=== PATIENT | male | born 1935 | race Caucasian/White ===

== ENCOUNTER 2017-12-08 11:21 | Outpatient (REF) | payer MEDICARE, OTHER, SELFPAY ==
[2017-12-08 12:32] LABS: Anion Gap 7.1 mmol/L (3-11); BUN 24 mg/dL (7-18); CO2 29.9 mmol/L (21.0-32.0); CREATININE 1.05 mg/dL (0.70-1.30); Calcium 8.9 mg/dL (8.5-10.1); Chloride 105 mmol/L (98-107); Glucose 107 mg/dL (70-100); Potassium 4.5 mmol/L (3.5-5.1); Sodium 142 mmol/L (136-145)
== END 2017-12-08 11:41 ==
LOC: NCHCN 11:21
PROVIDERS: PCP Internal Medicine; Visit Provider Internal Medicine
DX: I10 Essential (primary) hypertension (principal)
CPT/HCPCS: 80048

== ENCOUNTER 2018-12-14 01:24 | Outpatient (CLI) | payer MEDICARE, OTHER, SELFPAY ==
--- NOTE | 2018-12-14 13:30 | MERGE_ITS ---
*[facility]* *[facility]* [address] [place] [address] Date of study: 12/14/2018 Transthoracic Echocardiography M-mode, complete 2D, complete spectral Doppler, and color Doppler *STUDY CONCLUSIONS* Summary: 1. Left ventricle: The cavity size was normal. Systolic function was hyperdynamic. The estimated ejection fraction was 65-70%. 2. Aortic valve: There was mild stenosis. Peak velocity (S): 2m/sec. Mean gradient (S): 8.4mm Hg. VTI ratio of LVOT to aortic valve: 0.61. Valve area (VTI): 1.8cm^2. 3. Mitral valve: There was mild regurgitation. 4. Right ventricle: The cavity size was normal. Wall thickness was normal. Systolic function was normal. 5. Atrial septum: No defect or patent foramen ovale was identified. 6. Pulmonary arteries: Pulmonary systolic pressure was in the range of 30mm Hg to 40mm Hg. 7. Inferior vena cava: The vessel was normal in size. The respirophasic diameter changes were in the normal range (greater than or equal to 50%), consistent with normal central venous pressure. *PATIENT PRESENTATION* Height: 172.7cm (68in ) S/D Pressure: 159 / 79 Weight: 78.5kg (172.6lb ) BSA: 1.95m^2 Test start time: 01:30 PM. Test stop time: 02:25 PM. CONSULTING Sky Aviles MD ORDERING Sky Aviles MD REFERRING Sky Aviles MD PERFORMING [facility] NUTRITION ASSISTANT Zamuda, Neelam *PROCEDURE DATA* Procedure information: This study was interpreted by [facility]. Pertinent images and digital data are archived for permanent storage and are available for subsequent review. No prior study was available for comparison. Study status: Routine. Transthoracic echocardiography. M-mode, complete 2D, complete spectral Doppler, and color Doppler. A Transthoracic Echocardiogram was performed. Scanning was performed from the parasternal, apical, subcostal, and suprasternal notch acoustic windows. Images were obtained using an [employer] SC 2000 cardiac ultrasound machine. Study completion: The patient tolerated the procedure well. History: PMH: Murmur. *CARDIAC ANATOMY* Left ventricle: The cavity size was normal. Systolic function was hyperdynamic. The estimated ejection fraction was 65-70%. Aortic valve: Doppler: There was mild stenosis. There was no regurgitation. VTI ratio of LVOT to aortic valve: 0.61. Valve area (VTI): 1.8cm^2. Indexed valve area (VTI): 0.9cm^2/m^2. Peak velocity ratio of LVOT to aortic valve: 0.56. Valve area (Vmax): 1.6cm^2. Indexed valve area (Vmax): 0.8cm^2/m^2. Mean velocity ratio of LVOT to aortic valve: 0.51. Valve area (Vmean): 1.5cm^2. Indexed valve area (Vmean): 0.8cm^2/m^2. Mean gradient (S): 8.4mm Hg. Peak gradient (S): 15.4mm Hg. Aorta: Aortic root: The aortic root was normal in size. Ascending aorta: The ascending aorta was normal in size. Mitral valve: Doppler: There was no evidence for stenosis. There was mild regurgitation. Valve area by pressure half-time: 4.5cm^2. Indexed valve area by pressure half-time: 2.3cm^2/m^2. Peak gradient (D): 3.5mm Hg. Left atrium: The atrium was normal in size. Atrial septum: No defect or patent foramen ovale was identified. Right ventricle: The cavity size was normal. Wall thickness was normal. Systolic function was normal. Pulmonic valve: Doppler: There was no evidence for stenosis. There was trivial regurgitation. Tricuspid valve: Doppler: There was mild regurgitation. Pulmonary artery: Poorly visualized. Pulmonary systolic pressure was in the range of 30mm Hg to 40mm Hg. Right atrium: The atrium was normal in size. Pericardium: There was no pericardial effusion. Systemic veins: Inferior vena cava: The vessel was normal in size. The respirophasic diameter changes were in the normal range (greater than or equal to 50%), consistent with normal central venous pressure. Measurements Left ventricle Value Reference LV ID, ED, PLAX 4.3 cm 3.5 - 6.0 LV ID, ES, PLAX 2.9 cm 2.1 - 4.0 LV PW thickness, ED, PLAX 0.9 cm LV end-diastolic volume, 1-p A2C 104 ml LV ejection fraction, 1-p A2C 51 % LV end-diastolic volume, 1-p A4C 92 ml LV ejection fraction, 1-p A4C 51 % LV e', lateral 0.098 m/sec LV E/e', lateral 9 LV e', medial 0.057 m/sec LV E/e', medial 16 LV e', average 0.077 m/sec LV E/e', average 12 Ventricular septum Value Reference IVS thickness, ED, PLAX 0.9 cm LVOT Value Reference LVOT ID, A-P 1.9 cm LVOT area 2.9 cm^2 LVOT peak velocity, S 1.1 m/sec LVOT mean velocity, S 0.67 m/sec LVOT VTI, S 22.0 cm LVOT peak gradient, S 4.8 mm Hg LVOT mean gradient, S 2.2 mm Hg Stroke volume (SV), LVOT DP 64 ml Stroke index (SV/bsa), LVOT DP 33 ml/m^2 Aortic valve Value Reference Aortic valve peak velocity, S 2 m/sec Aortic valve mean velocity, S 1.3 m/sec Aortic valve VTI, S 36.0 cm Aortic mean gradient, S 8.4 mm Hg Aortic peak gradient, S 15.4 mm Hg VTI ratio, LVOT/AV 0.61 Aortic valve area, VTI 1.8 cm^2 Velocity ratio, peak, LVOT/AV 0.56 Aortic valve area, peak velocity 1.6 cm^2 Velocity ratio, mean, LVOT/AV 0.51 Aortic valve area, mean velocity 1.5 cm^2 Aortic valve area/bsa, mean velocity 0.8 cm^2/m^2 Aorta Value Reference Aortic root ID, ED 2.5 cm Ascending aorta ID, A-P, S 3.3 cm Left atrium Value Reference LA ID, A-P, ES 2.7 cm LA ID/bsa, A-P 1.4 cm/m^2 <=2.2 LA volume, ES, 2-p 47 ml LA volume/bsa, ES, 2-p 24 ml/m^2 LA/aortic root ratio 1.05 Mitral valve Value Reference Mitral E-wave peak velocity 0.93 m/sec Mitral A-wave peak velocity 0.83 m/sec Mitral deceleration time 167 ms 150 - 230 Mitral pressure half-time 48 ms Mitral peak gradient, D 3.5 mm Hg Mitral E/A ratio, peak 1.13 Mitral valve area, PHT, DP 4.5 cm^2 Tricuspid valve Value Reference Tricuspid regurg peak velocity 2.8 m/sec Tricuspid peak RV-RA gradient 32.2 mm Hg Right atrium Value Reference RA area, ES, A4C 17.2 cm^2 8.3 - 19.5 Legend: (L) and (H) asha values outside specified reference range. I have personally reviewed the images and have reviewed and edited the reported findings. Electronically signed by Jonathan Cao MD 12/14/2018 17:56
== END 2018-12-14 01:44 ==
PROVIDERS: PCP Internal Medicine; Visit Provider Internal Medicine
DX: R01.1 Cardiac murmur, unspecified (principal); I35.0 Nonrheumatic aortic (valve) stenosis; I34.0 Nonrheumatic mitral (valve) insufficiency; I10 Essential (primary) hypertension
CPT/HCPCS: 93306

== ENCOUNTER 2020-02-18 23:06 | Outpatient (REF) | payer MEDICARE, OTHER, SELFPAY ==
[2020-02-18 21:22] LABS: Anion Gap 6.7 mmol/L (3-11); BUN 24 mg/dL (7-18); CO2 28.3 mmol/L (21.0-32.0); CREATININE 1.07 mg/dL (0.70-1.30); Calcium 9.3 mg/dL (8.5-10.1); Chloride 106 mmol/L (98-107); Glucose 109 mg/dL (74-106); Potassium 4.2 mmol/L (3.5-5.1); Sodium 141 mmol/L (136-145)
== END 2020-02-18 23:26 ==
LOC: NCHCN 23:06
PROVIDERS: PCP Internal Medicine; Visit Provider Internal Medicine
DX: I10 Essential (primary) hypertension (principal)
CPT/HCPCS: 80048

== ENCOUNTER 2020-02-29 08:58 | Day surgery (SDC) | payer MEDICARE, OTHER, SELFPAY ==
[2020-02-29 09:12] VITALS: BP 164/82; PULSE 97; RESP 18; TEMP 36.4; O2SAT 98
[2020-02-29] MEDS: Tropicam./Phenyleph. (1/2.5%) 5 ML BTL OS ×3 (09:25→09:32)
[2020-02-29] MEDS: Balanced Salt Soln.-PLUS 500 ML BAG (11:27)
[2020-02-29] MEDS: Tetracaine 0.5% 4 ML BTL OS (11:29)
[2020-02-29] MEDS: Lidocaine 1% Pres-Free 5 ML VIAL (11:31)
[2020-02-29] MEDS: Lidocaine 2% Jelly 6 ML SYR (11:35)
[2020-02-29] MEDS: Povidone-Iodine Ophth 30 ML BTL (11:35)
--- NOTE | 2020-02-29 11:39 | ROE_ITS ---
Date of service: 02/29/20 Time of Service: 11:39 Operative Note Operative Note DATE OF PROCEDURE: 02/29/20 PRE-OP DIAGNOSIS: Nuclear cataract, left eye POST-OP DIAGNOSIS: same PROCEDURE: Cataract extraction using phacoemulsification with intraocular lens implant, left eye SURGEON: Victor Hugo Núñez ANESTHESIA: MAC and local (sub-tenon's anesthetic infiltration) PATHOLOGY: none sent COMPLICATIONS: None Patient was transported to: same day Patient's condition: stable Implants: Lei and Lei Vision / [employer] Tecnis [id number] Indications: Progressive decreased vision due to cataract, left eye Procedure Description: CATARACT SURGERY OPERATIVE REPORT PREOPERATIVE DIAGNOSIS: Nuclear cataract, left eye POSTOPERATIVE DIAGNOSIS: Same OPERATION: Cataract extraction using phacoemulsification with posterior chamber intraocular lens implant, left eye. IOL: IOL Medical Observer/Model: J&J Vision / MICHELLE Tecnis ZCB00 IOL Power: + 24.0 diopters IOL Serial Number: [id number] Optic Diameter: 6.0mm Haptic/Overall Diameter: 13.0mm PHACO INFO: Venu [employer] Vision System with OZil and Active Fluidics Cumulative Dispersed Energy (CDE): 16.36 seconds SURGEON: Victor Hugo Núñez MD, SHALA ANESTHESIA: Monitored Anesthesia Care (MAC), with local sub-tenon's anesthetic infiltration COMPLICATIONS: None SPECIMENS: None INDICATIONS FOR PROCEDURE: Patient is an 84-year-old gentleman with history of diminished visual acuity in both eyes secondary to the development of bilateral nuclear cataracts. His significant symptomatically he desires cataract surgery done to improve and maximize his vision. PROCEDURE: The correct surgical eye was identified and marked as the left eye and the pupil was dilated in the preoperative area using mydriatics and cycloplegics. The dilated pupil size was 5.5 mm. Oral sedation was administered in the form of an Imprimis MKO Melt (midazolam 3mg/ketamine 25mg/ondansetron 2mg). The patient was brought to the operating room where cardiopulmonary monitoring was instituted and surgical time-out was performed, confirming the correct operative eye and IOL power. Topical anesthesia was administered and ophthalmic povidone-iodine 5% was instilled into the conjunctival fornices. Lidocaine gel was applied to the cornea and the chris-ocular area was prepped with Betadine 10% solution and draped in the usual sterile fashion for intraocular surgery, including an aperture drape. A Tegaderm transparent film dressing was cut in half and used to cover the lashes and lid margins. Care was taken to sequester the lashes and lid margins under the Tegaderm dressing. A lid speculum was placed between the lids of the operative eye and the Meredith-Ashli operating microscope was maneuvered into position. Kavitha scissors were then used to make a conjunctival buttonhole approximately 6mm posterior to the limbus in the inferonasal quadrant. Blunt dissection was carried out to expose bare sclera, and a blunt-tipped sub-tenon?s anesthesia cannula was introduced and passed posteriorly along the globe where non- preserved plain lidocaine was injected into posterior sub-Tenon?s space. A sideport knife was used to make a paracentesis port superior/superiortemporally. Intraocular phenylephrine/lidocaine was injected into the anterior chamber. The anterior chamber was then filled with viscoelastic. A 2.4mm keratome knife was used to create a half-thickness groove at the limbus and then to construct a three-plane near-clear corneal tunnel extending 2.0mm into clear cornea in the temporal position. . A flap was raised on the anterior capsule and capsulorhexis forceps were used to complete a continuous curvilinear capsulorhexis of 5.5 mm. Balanced salt solution was then used to perform cortical cleaving hydrodissection and nuclear hydrodelineation until the lens could be freely rotated within the capsular bag. The lens nucleus was then disassembled and removed within the capsular bag and iris plane using phacoemulsification. Residual cortical material was removed using the 45-degree angled silicone I/A tip with 0.3mm port. The posterior capsule was carefully polished to remove as much residual lens epithelial cells as safely possible. The capsular bag was then inflated and the anterior chamber deepened with viscoelastic. The lens implant described above was inserted into the capsular bag using the MICHELLE [place] Injector. A Kuglen hook was used to dial the IOL into position. Residual viscoelastic was then removed first from posterior to the IOL, then from the anterior chamber using the I/A handpiece. The lens implant was noted to center nicely within the capsular bag. The incisions were stromally hydrated, and the anterior chamber was reformed using BSS. Then 0.1cc of moxifloxacin 5.0mg/ml were injected into the capsular bag and anterior chamber. The incisions were checked with a Weck spear and found to be secure. Several drops of ophthalmic povidone-iodine 5% were then applied to the eye followed by two drops of Imprimis combination prednisolone/moxifloxacin/nepafenac solution. The drapes were removed and a clear plastic protective eye shield was placed over the eye. The patient was then returned to Same Day Surgery in stable condition.
--- NOTE | 2020-02-29 11:39 | W.PM.DSUDISC ---
Discharge Plan Disposition Patient Disposition: HOME Condition: Good Discharge Details Attending Provider: Victor Hugo Núñez Primary Care Provider: Sky Aviles Home Meds and New Rx's Prescriptions: No Action amlodipine 5 mg tablet 5 mg PO DAILY RF: 0 Discharge Instructions Stand Alone Forms: Post-op Topical Cataract, Gissell Montes (DSU) Discharge Orders Discharge Orders: Discharge Order (Routine); Ordered 02/29/20 Ordered By: Victor Hugo Núñez DS: Diagnosis Discharge Diagnosis (1) Nuclear sclerotic cataract of left eye: Status: Resolved
[2020-02-29 12:10] VITALS: BP 131/76; PULSE 81; RESP 20; TEMP 36.8; O2SAT 100
== END 2020-02-29 12:15 | disposition home or self-care (01) ==
PROVIDERS: PCP Internal Medicine; Visit Provider Ophthalmology
PROC: (CPT 66984; principal; 2020-02-29 10:30)
DX: H25.12 Age-related nuclear cataract, left eye (principal); I10 Essential (primary) hypertension
CPT/HCPCS: 66984; V2632

== ENCOUNTER 2020-03-17 06:31 | Day surgery (SDC) | payer MEDICARE, OTHER, SELFPAY ==
[2020-03-17 06:37] VITALS: BP 176/83; PULSE 94; RESP 22; TEMP 36.2; O2SAT 95
[2020-03-17] MEDS: Tropicam./Phenyleph. (1/2.5%) 5 ML BTL OD ×3 (06:53→07:03)
[2020-03-17] MEDS: Lidocaine 2% Jelly 6 ML SYR (07:21)
[2020-03-17] MEDS: Povidone-Iodine Ophth 30 ML BTL ×2 (07:23→07:53)
[2020-03-17] MEDS: Balanced Salt Soln.-PLUS 500 ML BAG (07:28)
[2020-03-17] MEDS: Tetracaine 0.5% 4 ML BTL OD (07:29)
[2020-03-17] MEDS: Lidocaine 1% Pres-Free 5 ML VIAL (07:29)
[2020-03-17] MEDS: Duovisc Viscoelastic System EACH 1 EACH (07:30)
--- NOTE | 2020-03-17 07:58 | W.PM.DSUDISC ---
Discharge Plan Disposition Patient Disposition: HOME Condition: Good Discharge Details Attending Provider: Victor Hugo Núñez Primary Care Provider: Sky Aviles Home Meds and New Rx's Prescriptions: No Action amlodipine 5 mg tablet 5 mg PO DAILY RF: 0 Discharge Instructions Stand Alone Forms: Post-op Topical Cataract, Gissell Montes (DSU) Discharge Orders Discharge Orders: Discharge Order (Routine); Ordered 03/17/20 Ordered By: Victor Hugo Núñez DS: Diagnosis Discharge Diagnosis (1) Nuclear sclerotic cataract of right eye: Status: Resolved
--- NOTE | 2020-03-17 07:59 | ROE_ITS ---
Date of service: 03/17/20 Time of Service: 07:59 Operative Note Operative Note DATE OF PROCEDURE: 03/17/20 PRE-OP DIAGNOSIS: Nuclear cataract, right eye POST-OP DIAGNOSIS: same PROCEDURE: Cataract extraction using phacoemulsification with intraocular lens implant, right eye SURGEON: Victor Hugo Núñez ANESTHESIA: MAC and local (sub-tenon's anesthetic infiltration) ESTIMATED BLOOD LOSS: 0 PATHOLOGY: none sent COMPLICATIONS: None Patient was transported to: same day Patient's condition: stable Implants: Lei and Lei Vision / [employer] Opt[employer] Tecnis ZCB00 intr aocular lens Indications: Progressive decreased vision due to cataract, right eye Procedure Description: CATARACT SURGERY OPERATIVE REPORT PREOPERATIVE DIAGNOSIS: Nuclear cataract, right eye POSTOPERATIVE DIAGNOSIS: Same OPERATION: Cataract extraction using phacoemulsification with posterior chamber intraocular lens implant, right eye. IOL: IOL Sack Repairer/Model: J&J Vision / MICHELLE Tecnis ZCB00 IOL Power: + +24.0 diopters IOL Serial Number: [id number] Optic Diameter: 6.0mm Haptic/Overall Diameter: 13.0mm PHACO INFO: Venu [employer]ion Vision System with OZil and Active Fluidics Cumulative Dispersed Energy (CDE): 17.60 seconds SURGEON: Victor Hugo Núñez MD, SHALA ANESTHESIA: Monitored Anesthesia Care (MAC), with local sub-tenon's anesthetic infiltration COMPLICATIONS: None SPECIMENS: None INDICATIONS FOR PROCEDURE: Patient is an 84-year-old gentleman with history of diminished visual acuity in his right eye. He has history of bilateral nuclear cataracts, and has already undergone cataract surgery in his left eye. He is doing well postoperatively. He now presents for cataract surgery in the right eye. PROCEDURE: The correct surgical eye was identified and marked as the right eye and the pupil was dilated in the preoperative area using mydriatics and cycloplegics. The dilated pupil size was 5.5 mm. Oral sedation was administered in the form of an Imprimis MKO Melt (midazolam 3mg/ketamine 25mg/ondansetron 2mg). The patient was brought to the operating room where cardiopulmonary monitoring was instituted and surgical time-out was performed, confirming the correct operative eye and IOL power. Topical anesthesia was administered and ophthalmic povidone-iodine 5% was instilled into the conjunctival fornices. Lidocaine gel was applied to the cornea and the chris-ocular area was prepped with Betadine 10% solution and draped in the usual sterile fashion for intraocular surgery, including an aperture drape. A Tegaderm transparent film dressing was cut in half and used to cover the lashes and lid margins. Care was taken to sequester the lashes and lid margins under the Tegaderm dressing. A lid speculum was placed between the lids of the operative eye and the Meredith-Ashli operating microscope was maneuvered into position. Kavitha scissors were then used to make a conjunctival buttonhole approximately 6mm posterior to the limbus in the inferonasal quadrant. Blunt dissection was carried out to expose bare sclera, and a blunt-tipped sub-tenon?s anesthesia cannula was introduced and passed posteriorly along the globe where non- preserved plain lidocaine was injected into posterior sub-Tenon?s space. A sideport knife was used to make a paracentesis port inferiortemporally. Intraocular phenylephrine/lidocaine was injected into the anterior chamber. The anterior chamber was then filled with Venu Viscoat viscoelastic. A 2.4mm keratome knife was used to create a half-thickness groove at the limbus and then to construct a three-plane near-clear corneal tunnel extending 2.0mm into clear cornea in the superiortemporal position. . A flap was raised on the anterior capsule and capsulorhexis forceps were used to complete a continuous curvilinear capsulorhexis of 4.5 mm. The anterior chamber was noted to be quite shallow. Balanced salt solution was then used to perform cortical cleaving hydrodissection and nuclear hydrodelineation until the lens could be freely rotated within the capsular bag. The lens nucleus was then disassembled and removed within the capsular bag and iris plane using phacoemulsification. Residual cortical material was removed using the I/A handpiece. The posterior capsule was carefully polished to remove as much residual lens epithelial cells as safely possible. The capsular bag was then inflated and the anterior chamber deepened with viscoelastic. The lens implant described above was inserted into the capsular bag using the MICHELLE [place] Injector. A Kuglen hook was used to dial the IOL into position. Residual viscoelastic was then removed first from posterior to the IOL, then from the anterior chamber using the I/A handpiece. The lens implant was noted to center nicely within the capsular bag. The incisions were stromally hydrated, and the anterior chamber was reformed using BSS. Then 0.5cc of moxifloxacin 1.0mg/ml were injected into the capsular bag and anterior chamber. The incisions were checked with a Weck spear and found to be secure. Several drops o f ophthalmic povidone-iodine 5% were then applied to the eye followed by two drops of Imprimis combination prednisolone/moxifloxacin/nepafenac solution. The drapes were removed and a clear plastic protective eye shield was placed over the eye. The patient was then returned to Same Day Surgery in stable condition.
[2020-03-17 08:28] VITALS: BP 136/70; PULSE 77; RESP 18; TEMP 36.9; O2SAT 94
== END 2020-03-17 08:50 | disposition home or self-care (01) ==
PROVIDERS: PCP Internal Medicine; Visit Provider Ophthalmology
PROC: (CPT 66984; principal; 2020-03-17 07:30)
DX: H25.11 Age-related nuclear cataract, right eye (principal); Z96.1 Presence of intraocular lens; Z98.42 Cataract extraction status, left eye; I10 Essential (primary) hypertension
CPT/HCPCS: 66984; V2632

== ENCOUNTER 2020-04-08 12:06 | Outpatient (REF) | payer MEDICARE, OTHER, SELFPAY ==
[2020-04-08 13:42] LABS: HCT 39.5 % (40.0-50.0); HGB 12.7 g/dL (13.5-17.5); MCH 31.1 pg (27.0-33.0); MCHC 32.2 % (32.0-36.0); MCV 96.8 fL (80-95); MPV 8.9 fL (8.0-11.0); Platelet Count 251 10^3/uL (130-400); RBC 4.08 10^6/uL (4.36-5.78); RDW 12.2 % (11.8-14.1); RDW-SD 43.2 fL; WBC 6.95 10^3/uL (4.4-10.8)
[2020-04-08 13:59] LABS: ALT 23 U/L (16-63); AST 17 U/L (15-37); Albumin 3.9 g/dL (3.4-5.0); Alkaline Phosphatase 123 U/L (46-116); Anion Gap 8.8 mmol/L (3-11); BUN 38 mg/dL (7-18); CO2 26.2 mmol/L (21.0-32.0); CREATININE 2.85 mg/dL (0.70-1.30); Calcium 8.7 mg/dL (8.5-10.1); Chloride 107 mmol/L (98-107); Estimated GFR 21.26 (mL/min/1.73m2); Glucose 95 mg/dL (74-106); NT-proBNP 405 pg/mL (<300); Potassium 4.7 mmol/L (3.5-5.1); Sodium 142 mmol/L (136-145); Total Protein 6.8 g/dL (6.4-8.2)
[2020-04-08 14:01] LABS: Hemoglobin A1C 5.3 % (<5.7)
[2020-04-08 23:14] LABS: PSA, Screening 167.5 ng/mL (0.0-6.5)
== END 2020-04-08 12:26 ==
LOC: NCHCN 12:06
PROVIDERS: PCP Internal Medicine; Visit Provider Internal Medicine
DX: I10 Essential (primary) hypertension (principal); R11.0 Nausea; R06.09 Other forms of dyspnea; R53.83 Other fatigue; R32 Unspecified urinary incontinence; R35.1 Nocturia; Z87.09 Personal history of other diseases of the respiratory system; R60.9 Edema, unspecified
CPT/HCPCS: 80053; 84153; 85027; 83036; 83880; 84443

== ENCOUNTER → 2020-04-11 08:15 | Outpatient (BNVA) | payer MEDICARE, OTHER, SELFPAY | PROVIDERS: PCP Internal Medicine; Referring Provider Internal Medicine; Visit Provider Urology | DX: R97.20 Elevated prostate specific antigen [PSA] (principal); N39.490 Overflow incontinence; N13.9 Obstructive and reflux uropathy, unspecified; N13.8 Other obstructive and reflux uropathy | CPT/HCPCS: 51702; 99215; G2212 ==

== ENCOUNTER 2020-04-14 01:36 | Outpatient (CLI) | payer MEDICARE, OTHER, SELFPAY ==
--- NOTE | 2020-04-14 | DI.US_ITS ---
EXAM: US PROSTATE BIOPSY CLINICAL HISTORY: ELEVATED PSA,R97.20 TECHNIQUE: Transrectal ultrasound for prostate biopsy. COMPARISON: None FINDINGS: Ultrasound guidance was performed during transrectal prostate biopsy performed by the urologist. IMPRESSION: DATA REPOSITORY:
--- NOTE | 2020-04-14 08:40 | PROST_PTH ---
PATIENT: Mike Leonard LOC: [facility] U#:[id number] AGE/SX: 84/M ROOM: RE04/14/[address]: Jason Stroud MD : [id number] BED: DIS: 04/14/2020 SPEC #: [id number] RECD: 04/14/20 12:03 STATUS: [facility] #: [id number] KIANA: 04/14/20 08:[address]: Jason Stroud DEPT: Surgical Specimen RECD BY: Xochitl Cordon ENTERED: 04/14/20 12:05 SP TYPE: PROST OTHR DR: Sky Aviles Tissues: 1 - PROSTATE NEEDLE BIOPSY 2 - PROSTATE NEEDLE BIOPSY 3 - PROSTATE NEEDLE BIOPSY 4 - PROSTATE NEEDLE BIOPSY 5 - PROSTATE NEEDLE BIOPSY 6 - PROSTATE NEEDLE BIOPSY 7 - PROSTATE NEEDLE BIOPSY 8 - PROSTATE NEEDLE BIOPSY 9 - PROSTATE NEEDLE BIOPSY 10 - PROSTATE NEEDLE BIOPSY 11 - PROSTATE NEEDLE BIOPSY 12 - PROSTATE NEEDLE BIOPSY Procedures: GROSS AND MICRO LEVEL 4 IMMUNOPEROXIDASE STAIN Comments: [id number]
--- NOTE | 2020-04-14 08:58 | W.PM.OP ---
Date of service: 04/14/20 Time of Service: 08:58 Operative Note Operative Note DATE OF PROCEDURE: 04/14/20 PRE-OP DIAGNOSIS: Elevated PSA POST-OP DIAGNOSIS: same PROCEDURE: Transrectal ultrasound-guided biopsy of prostate SURGEON: Jason Stroud ANESTHESIA: local ESTIMATED BLOOD LOSS: 5 PATHOLOGY: other (Laterally directed biopsies of the prostate) COMPLICATIONS: None Patient was transported to: no change Patient's condition: stable Indications: This is an 84-year-old gentleman who was recently identified as having obstructive uropathy. He has elevated PSA over 150 ng/mL. On digital rectal exam, there is diffuse nodularity of the rectal wall and prostate. He presents for ultrasound-guided biopsy. Findings: Diffusely thickened rectal wall Tong catheter in place Diffusely enlarged prostate Procedure Description: The patient was brought to the procedure room on 04/14/2020. He had been given a preprocedure mechanical and antibiotic bowel prep. Transrectal imaging of the prostate was performed using a variable megahertz transducer. The prostate was imaged in transverse and longitudinal planes. The prostate volume was measured at 79 cc. A Tong catheter could be seen in the urethra. The rectal wall appeared quite thickened and irregular. There was loss of architecture between the rectal wall and prostate itself. A periprosthetic nerve block was performed using 1% lidocaine A total of 12 laterally directed biopsies were taken and sent to pathology for permanent section. He tolerated the procedure well.
[2020-04-14 09:42] LABS: BUN 33 mg/dL (7-18); CREATININE 1.51 mg/dL (0.70-1.30); Estimated GFR 44.25 (mL/min/1.73m2)
== END 2020-04-14 01:56 ==
PROVIDERS: PCP Internal Medicine; Visit Provider Urology
DX: R97.20 Elevated prostate specific antigen [PSA] (principal); N13.9 Obstructive and reflux uropathy, unspecified; C61 Malignant neoplasm of prostate
CPT/HCPCS: 55700; 76872; 76942; 84520; 88305; 82565; 88361

== ENCOUNTER 2020-04-15 13:24 | Outpatient (CLI) | payer MEDICARE, OTHER, SELFPAY ==
[2020-04-15] MEDS: Omnipaque 350 MG/ML 50 ML BTL IJ (09:51)
[2020-04-15] MEDS: Breeza Beverage 473 ML BTL PO ×2 (09:52)
--- NOTE | 2020-04-15 11:04 | DI.CT_ITS ---
EXAM: CT CHEST/ABD/PEL WO CLINICAL HISTORY: ACUTE NONTRAUMATIC KIDNEY INJURY,N17.9,ELEVATED PSA,? PROSTATE CA. TECHNIQUE: Imaging Protocol: Axial computed tomography images with coronal and sagittal reformatted images were created and reviewed CONTRAST MATERIAL: Intravenous: Omnipaque 350 Contrast volume: Noncontrast Oral: yes COMPARISON: US US PROSTATE BIOPSY from 04/14/2020 FINDINGS: CHEST: Thyroid: Normal Tracheobronchial tree: Patent where visualized. Mediastinum and Gregoria: No dominant adenopathy or fluid collection. Pulmonary parenchyma: No consolidation or dominant measurable mass. Moderate centrilobular emphysema greater in the upper lobes. Mild apical scarring. 3 small nodules are noted at the left lung base, measuring 8 millimeters, 5 millimeters and 4 millimeters respectively. Pleura: No effusion or pneumothorax. Lymph nodes: Within normal limits. Aorta: Thoracic portion non-dilated. Mild atherosclerotic changes. Heart: Normal size. Moderate coronary artery calcifications. Bones: Sclerotic metastatic foci in the T12 vertebral body, spinous process of T8 as well as a few bi lateral ribs and inferior left scapula. ABDOMEN: Liver: Normal density. No measurable mass. Gallbladder and biliary tract: No radiodense calculus or dilation. Pancreas: Normal density, no abnormal calcifications or inflammatory process. Spleen: Normal. Kidneys: Normal size, contour and axis. Nonobstructing stone near the upper pole of the left kidney. Cysts mid and lower pole of the right kidney. Bilateral hydronephrosis. No ureteral calculi. Adrenal glands: No masses seen. Aorta: Abdominal portion non-dilated. Moderate atherosclerotic changes. Lymph nodes: Enlarged para-aortic lymph nodes, greater on the left measuring on the order of 15 soco meters. Small bilateral iliac chain lymph nodes on the order of 1 cm. PELVIS: Bladder: Catheter in place. Marked wall thickening. Bowel: No obstruction or bowel wall thickening. Peritoneal cavity: No ascites, collection or mesenteric inflammatory response. Bones: Numerous sclerotic foci are seen in the bilateral luis, ischia and pubic bones as well as sacr um and bilateral proximal femurs. A large sclerotic lesion is seen in L3. There are no destructive lesions or evidence of pathologic fracture. Reproductive organs: Markedly enlarged prostate. The borders are not well-defined and appears to ext end posteriorly to the seminal vesicles. Numerous small but abnormally enlarged perirectal lymph nod es. IMPRESSION: Markedly enlarged prostate with infiltrative appearance consistent with prostate carcinoma. Bilatera l moderate hydronephrosis. Enlarged pelvic and periaortic lymph nodes. Widespread bony metastases. Nodules at the left lung base are suspicious for metastatic disease. RADIATION DOSE DELIVERED: 1,302.82mGy.cm Total DLP DATA REPOSITORY: All CT scans at this facility are submitted to the National Radiology Data Registry (NRDR) Dose Index Registry (DIR) with the [employer] (ACR). RADIATION OPTIMIZATION: All CT scans at this facility use at least one of these dose optimization te chniques: automated exposure control; mA and/or kV adjustment per patient size (includes targeted exa ms where dose is matched to clinical indication); or iterative reconstruction.
== END 2020-04-15 13:44 ==
PROVIDERS: PCP Internal Medicine; Visit Provider Internal Medicine
DX: N40.0 Benign prostatic hyperplasia without lower urinary tract symptoms (principal); N13.30 Unspecified hydronephrosis; R59.0 Localized enlarged lymph nodes; R91.8 Other nonspecific abnormal finding of lung field; C79.51 Secondary malignant neoplasm of bone; R97.20 Elevated prostate specific antigen [PSA]
CPT/HCPCS: 71250; 99204; 74176; Q9967

== ENCOUNTER → 2020-04-25 10:59 | Outpatient (BNVA) | payer MEDICARE, OTHER, SELFPAY | PROVIDERS: PCP Internal Medicine; Referring Provider Internal Medicine; Visit Provider Urology | DX: C61 Malignant neoplasm of prostate (principal); N13.9 Obstructive and reflux uropathy, unspecified | CPT/HCPCS: 99215; G2212 ==

== ENCOUNTER 2020-05-01 01:12 | Outpatient (CLI) | payer MEDICARE, OTHER, SELFPAY ==
--- NOTE | 2020-05-01 | DI.US_ITS ---
EXAM: US CAROTID CLINICAL HISTORY: H/O ISCHEMIC TIA, Z86.73, PROSTATE CA. TECHNIQUE: Ultrasound carotids performed using grayscale, color-flow, and spectral Doppler imaging. COMPARISON: No exams were available for comparison FINDINGS: RIGHT CAROTID ARTERY: Plaque: Mild plaque proximal internal carotid artery Velocity elevation: None. LEFT CAROTID ARTERY: Plaque: Mild plaque proximal internal carotid artery. Velocity elevation: None. VERTEBRAL ARTERIES: Antegrade flow. Measurements: R Bulb: 60.4cm/s PS / 7.7cm/s ED R CCA: 122.1cm/s PS / 18.6cm/s ED R ECA: 114.4cm/s PS / 12.9cm/s ED R ICA Prox: 152.7cm/s PS /38.2cm/s ED R ICA Mid: 121.2cm/s PS / 23.1cm/s ED R ICA Distal: 104.9cm/s PS /24cm/s ED R Vert: 62.8cm/s PS / 12.4cm/s ED R SVR: 1.25 R DVR: 2.05 L Bulb: 74.5cm/s PS /10.8cm/s ED L CCA: 113.2cm/s PS / 18.2cm/s ED L ECA: 141.6cm/s PS /17.6cm/s ED L ICA Prox:97cm/s PS / 15.4cm/s ED L ICA Mid: 108.6cm/sPS / 26.4cm/s ED L ICA Distal: 108.6cm/s PS / 30.8cm/s ED L Vert: 64.9cm/s PS / 15.4cm/s ED L SVR: 0.96 L DVR: 1.45 IMPRESSION: Mild calcific plaque in the common carotid bulb and proximal internal carotid arteries. Mild velocit y elevations in the proximal right internal carotid artery consistent with a 50-69 percent stenosis. Criteria for Carotid Stenosis: Normal: ICA PSV <125 cm/s no plaque or intimal thickening is visible. <50% stenosis: ICA PSV <125 cm/s and plaque or intimal thickening is visible. 50-69% stenosis: ICA PSV is 125-250 cm/s and plaque is visible. >70% stenosis to near occlusion: ICA PSV >250 cm/s with visible plaque and luminal narrowing. DATA REPOSITORY:
--- NOTE | 2020-05-01 09:35 | DI.CT_ITS ---
EXAM: CT HEAD WO CLINICAL HISTORY: H/O ISCHEMIC TIA,Z86.73, PROSTATE CA. TECHNIQUE: Imaging Protocol: Axial computed tomography images with coronal and sagittal reformatted images were created and reviewed COMPARISON: No exams were available for comparison FINDINGS: Ventricles and Extra axial spaces: Normal in size and morphology for the patient's age. Minimal atrop hy. Hemorrhage: None. Cerebral parenchyma: No evidence of mass or infarct. Mild white matter changes consistent with micro vascular disease. Midline shift: None. Brainstem/Cerebellum: Normal. Calvarium: Normal. Visualized Paranasal sinuses/Mastoids: Clear. Soft Tissues: Unremarkable. IMPRESSION: No acute intracranial process. RADIATION DOSE DELIVERED: 740.64mGy.cm Total DLP DATA REPOSITORY: All CT scans at this facility are submitted to the National Radiology Data Registry (NRDR) Dose Index Registry (DIR) with the [employer] (ACR). RADIATION OPTIMIZATION: All CT scans at this facility use at least one of these dose optimization te chniques: automated exposure control; mA and/or kV adjustment per patient size (includes targeted exa ms where dose is matched to clinical indication); or iterative reconstruction.
== END 2020-05-01 01:13 ==
LOC: DI 01:12
PROVIDERS: PCP Internal Medicine; Visit Provider Internal Medicine
DX: Z86.73 Personal history of transient ischemic attack (TIA), and cerebral infarction without residual deficits (principal); C61 Malignant neoplasm of prostate; I65.21 Occlusion and stenosis of right carotid artery
CPT/HCPCS: 93246; 70450; 93880

== ENCOUNTER 2020-05-01 14:22 | Outpatient (CLI) | payer MEDICARE, OTHER, SELFPAY ==
--- NOTE | 2020-05-15 12:52 | ZIOP_ITS ---
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 Minimum was 40, maximum 163 There were rare atrial and ventricular ectopic beats There was no atrial fibrillation. There were no pauses greater than 3 seconds. There was no high-grade AV block There were occasional brief self-limited atrial runs, which were asymptomatic Patient triggered events corresponded to sinus rhythm and sinus tachycardia
== END 2020-05-01 14:23 | disposition home or self-care (01) ==
PROVIDERS: PCP Internal Medicine; Visit Provider Internal Medicine
DX: Z86.73 Personal history of transient ischemic attack (TIA), and cerebral infarction without residual deficits (principal)
CPT/HCPCS: 93246

== ENCOUNTER → 2020-05-09 08:01 | Outpatient (BNVA) | payer MEDICARE, OTHER, SELFPAY | PROVIDERS: PCP Internal Medicine; Referring Provider Internal Medicine; Visit Provider Urology | DX: C61 Malignant neoplasm of prostate (principal); R97.20 Elevated prostate specific antigen [PSA]; N13.8 Other obstructive and reflux uropathy; R33.8 Other retention of urine; C79.82 Secondary malignant neoplasm of genital organs | CPT/HCPCS: 96402; 99212; J0897; J9217; 96372 ==

== ENCOUNTER 2020-05-15 12:52 | Outpatient (CLI) | payer MEDICARE, SELFPAY | END 2020-05-15 12:53 | LOC: CARDO 05-16 08:31 | PROVIDERS: PCP Internal Medicine; Referring Provider Internal Medicine; Visit Provider Internal Medicine Cardiovascular Disease | DX: G45.9 Transient cerebral ischemic attack, unspecified (principal) | CPT/HCPCS: 93248 ==

== ENCOUNTER 2020-05-16 03:13 | Outpatient (CLI) | payer MEDICARE, OTHER, SELFPAY ==
--- NOTE | 2020-05-16 07:45 | DI.NM_ITS ---
EXAM: NM BONE SCAN WHOLE BODY GRP CLINICAL HISTORY: baseline study for new dx metastatic prostate ca,C61. TECHNIQUE: Injected Dose: 24.6 mCi Tc-99m MDP Delayed Images: 2-3 hours. COMPARISON: CT CT CHEST/ABD/PEL WO from 04/15/[address] CHEST/ABD/PEL WO from 04/15/[address] HEAD WO from 05/01/2020 FINDINGS: There are innumerable abnormal foci bony uptake seen in bilateral ribs. Numerous foci are noted on b oth sides of the pelvis, proximal femurs as well as proximal humeri. Numerous areas of abnormal incr eased activity are noted in the spine, the most active lesion at T12. There is increased activity in both sides of the face in the maxillary regions. IMPRESSION: 1. Widespread bony metastasis involving the axial and appendicular skeleton. DATA REPOSITORY:
== END 2020-05-16 03:14 ==
PROVIDERS: PCP Internal Medicine; Visit Provider Urology
DX: C61 Malignant neoplasm of prostate (principal); C79.51 Secondary malignant neoplasm of bone
CPT/HCPCS: 78306; 99213

== ENCOUNTER → 2020-06-09 13:18 | Outpatient (BNVA) | payer MEDICARE, OTHER, SELFPAY | PROVIDERS: PCP Internal Medicine; Referring Provider Internal Medicine; Visit Provider Nurse Practitioner Gerontology | DX: C61 Malignant neoplasm of prostate (principal); N13.8 Other obstructive and reflux uropathy; Z51.11 Encounter for antineoplastic chemotherapy; C79.51 Secondary malignant neoplasm of bone | CPT/HCPCS: 51702; 96402; J0897; J9217; 96372 ==

== ENCOUNTER 2020-07-14 04:20 | Outpatient (CLI) | payer MEDICARE, OTHER, SELFPAY ==
[2020-07-14 11:27] LABS: Abs Immature Grans 0.07 10^3/uL (0.0-0.06); Absolute Basophil Count 0.04 10^3/uL (0.0-0.2); Absolute Eosinophil Count 0.17 10^3/uL (0.0-0.7); Absolute Lymphocyte Count 0.76 10^3/uL (1.2-3.4); Absolute Monocyte Count 0.56 10^3/uL (0.1-0.8); Absolute Neutrophil Count 6.45 10^3/uL (1.2-6.7); Basophils % 0.5; Eosinophils % 2.1; HCT 42.5 % (40.0-50.0); HGB 13.8 g/dL (13.5-17.5); Immature Grans % 0.9; Lymphocytes % 9.4; MCH 31.6 pg (27.0-33.0); MCHC 32.5 % (32.0-36.0); MCV 97.3 fL (80-95); MPV 8.4 fL (8.0-11.0); Neutrophils % 80.1; Nucleated RBC 0 %; Platelet Count 263 10^3/uL (130-400); RBC 4.37 10^6/uL (4.36-5.78); RDW 12.2 % (11.8-14.1); RDW-SD 44.3 fL; WBC 8.05 10^3/uL (4.4-10.8)
[2020-07-14 12:08] LABS: ALT 39 U/L (16-63); AST 23 U/L (15-37); Albumin 4.1 g/dL (3.4-5.0); Alkaline Phosphatase 252 U/L (46-116); Anion Gap 8.3 mmol/L (3-11); BUN 20 mg/dL (7-18); Bilirubin, Total 1.2 mg/dL (0.2-1.0); CO2 28.7 mmol/L (21.0-32.0); Calcium 8.2 mg/dL (8.5-10.1); Chloride 108 mmol/L (98-107); Glucose 117 mg/dL (74-106); Potassium 4.3 mmol/L (3.5-5.1); Sodium 145 mmol/L (136-145); Total Protein 6.9 g/dL (6.4-8.2)
[2020-07-15 17:18] LABS: PSA, Ultrasensitive 3.5 ng/mL (<= 7.2)
[2020-07-16 23:22] LABS: Testosterone, Total <7.0 ng/dL (240-950)
== END 2020-07-14 04:21 | disposition home or self-care (01) ==
LOC: LBO 04:20
PROVIDERS: PCP Internal Medicine; Visit Provider Internal Medicine
DX: C61 Malignant neoplasm of prostate (principal); C79.51 Secondary malignant neoplasm of bone; N13.8 Other obstructive and reflux uropathy; Z51.11 Encounter for antineoplastic chemotherapy; Z46.6 Encounter for fitting and adjustment of urinary device
CPT/HCPCS: 36415; 51702; 80053; 84153; 84403; 84520; 96402; J0897; J9217; 85025; 96372

== ENCOUNTER 2020-07-28 03:23 | Outpatient (CLI) | payer MEDICARE, SELFPAY ==
[2020-07-28 14:18] LABS: Abs Immature Grans 0.04 10^3/uL (0.0-0.06); Absolute Basophil Count 0.02 10^3/uL (0.0-0.2); Absolute Eosinophil Count 0.05 10^3/uL (0.0-0.7); Absolute Lymphocyte Count 0.92 10^3/uL (1.2-3.4); Absolute Monocyte Count 0.59 10^3/uL (0.1-0.8); Absolute Neutrophil Count 6.42 10^3/uL (1.2-6.7); Basophils % 0.2; Eosinophils % 0.6; HCT 38.6 % (40.0-50.0); HGB 12.7 g/dL (13.5-17.5); Immature Grans % 0.5; Lymphocytes % 11.4; MCH 31.6 pg (27.0-33.0); MCHC 32.9 % (32.0-36.0); MPV 8.6 fL (8.0-11.0); Monocytes % 7.3; Nucleated RBC 0 %; Platelet Count 263 10^3/uL (130-400); RBC 4.02 10^6/uL (4.36-5.78); RDW 12.1 % (11.8-14.1); RDW-SD 42.8 fL; WBC 8.04 10^3/uL (4.4-10.8)
[2020-07-28 14:31] LABS: ALT 30 U/L (16-63); AST 23 U/L (15-37); Albumin 3.8 g/dL (3.4-5.0); Alkaline Phosphatase 195 U/L (46-116); Anion Gap 8.6 mmol/L (3-11); BUN 29 mg/dL (7-18); CO2 27.4 mmol/L (21.0-32.0); CREATININE 1.1 mg/dL (0.70-1.30); Calcium 8.5 mg/dL (8.5-10.1); Chloride 109 mmol/L (98-107); Glucose 112 mg/dL (74-106); Potassium 4.2 mmol/L (3.5-5.1); Sodium 145 mmol/L (136-145); Total Protein 6.8 g/dL (6.4-8.2)
[2020-07-30 13:27] LABS: PSA, Ultrasensitive 3.5 ng/mL (<= 7.2)
[2020-07-31 17:28] LABS: Testosterone, Total <7.0 ng/dL (240-950)
== END 2020-07-28 03:24 | disposition home or self-care (01) ==
PROVIDERS: PCP Internal Medicine; Visit Provider Internal Medicine
DX: C61 Malignant neoplasm of prostate (principal)
CPT/HCPCS: 80053; 84153; 84403; 85025

== ENCOUNTER 2020-08-19 02:49 | Outpatient (CLI) | payer MEDICARE, OTHER, SELFPAY ==
[2020-08-19 08:17] LABS: Abs Immature Grans 0.06 10^3/uL (0.0-0.06); Absolute Basophil Count 0.03 10^3/uL (0.0-0.2); Absolute Eosinophil Count 0.15 10^3/uL (0.0-0.7); Absolute Lymphocyte Count 1.82 10^3/uL (1.2-3.4); Absolute Monocyte Count 1.22 10^3/uL (0.1-0.8); Basophils % 0.3; Eosinophils % 1.6; HGB 13.8 g/dL (13.5-17.5); Immature Grans % 0.6; MCH 31.4 pg (27.0-33.0); MCHC 32.9 % (32.0-36.0); MCV 95.5 fL (80-95); MPV 8.5 fL (8.0-11.0); Monocytes % 12.7; Neutrophils % 65.8; Nucleated RBC 0 %; Platelet Count 284 10^3/uL (130-400); RDW 12.1 % (11.8-14.1); RDW-SD 42.1 fL; WBC 9.58 10^3/uL (4.4-10.8)
[2020-08-19 08:28] LABS: ALT 28 U/L (16-63); AST 15 U/L (15-37); Albumin 3.9 g/dL (3.4-5.0); Alkaline Phosphatase 181 U/L (46-116); Anion Gap 9.4 mmol/L (3-11); BUN 24 mg/dL (7-18); Bilirubin, Total 1.2 mg/dL (0.2-1.0); CO2 27.6 mmol/L (21.0-32.0); CREATININE 1.1 mg/dL (0.70-1.30); Calcium 8.7 mg/dL (8.5-10.1); Chloride 107 mmol/L (98-107); Glucose 106 mg/dL (74-106); Potassium 4.4 mmol/L (3.5-5.1); Sodium 144 mmol/L (136-145); Total Protein 7.3 g/dL (6.4-8.2)
[2020-08-20 15:52] LABS: PSA, Ultrasensitive 2.6 ng/mL (<= 7.2)
[2020-08-22 17:33] LABS: Testosterone, Total <7.0 ng/dL (240-950)
== END 2020-08-19 02:50 | disposition home or self-care (01) ==
PROVIDERS: PCP Internal Medicine; Visit Provider Internal Medicine
DX: C61 Malignant neoplasm of prostate (principal); N13.9 Obstructive and reflux uropathy, unspecified; C79.51 Secondary malignant neoplasm of bone
CPT/HCPCS: 36415; 51702; 80053; 84153; 84403; 96402; J0897; 85025; 96372; J9217

== ENCOUNTER 2020-09-25 02:59 | Outpatient (CLI) | payer MEDICARE, OTHER, SELFPAY ==
[2020-09-25 13:51] LABS: Abs Immature Grans 0.06 10^3/uL (0.0-0.06); Absolute Basophil Count 0.02 10^3/uL (0.0-0.2); Absolute Eosinophil Count 0.02 10^3/uL (0.0-0.7); Absolute Lymphocyte Count 1.17 10^3/uL (1.2-3.4); Absolute Monocyte Count 0.69 10^3/uL (0.1-0.8); Absolute Neutrophil Count 6.79 10^3/uL (1.2-6.7); Basophils % 0.2; Eosinophils % 0.2; HCT 42.5 % (40.0-50.0); HGB 13.7 g/dL (13.5-17.5); Immature Grans % 0.7; Lymphocytes % 13.4; MCH 31.2 pg (27.0-33.0); MCHC 32.2 % (32.0-36.0); MCV 96.8 fL (80-95); MPV 8.7 fL (8.0-11.0); Monocytes % 7.9; Neutrophils % 77.6; Nucleated RBC 0 %; Platelet Count 266 10^3/uL (130-400); RBC 4.39 10^6/uL (4.36-5.78); RDW 11.9 % (11.8-14.1); RDW-SD 42.5 fL; WBC 8.75 10^3/uL (4.4-10.8)
[2020-09-25 14:03] LABS: ALT 22 U/L (16-63); AST 13 U/L (15-37); Albumin 3.7 g/dL (3.4-5.0); Alkaline Phosphatase 138 U/L (46-116); Anion Gap 7.6 mmol/L (3-11); BUN 24 mg/dL (7-18); Bilirubin, Total 1.1 mg/dL (0.2-1.0); CO2 28.4 mmol/L (21.0-32.0); CREATININE 1.1 mg/dL (0.70-1.30); Calcium 8.9 mg/dL (8.5-10.1); Chloride 107 mmol/L (98-107); Glucose 137 mg/dL (74-106); Potassium 4.2 mmol/L (3.5-5.1); Sodium 143 mmol/L (136-145); Total Protein 7.1 g/dL (6.4-8.2)
[2020-09-27 12:15] LABS: PSA, Ultrasensitive 1.7 ng/mL (<= 7.2)
[2020-09-29 13:38] LABS: Testosterone, Total <7.0 ng/dL (240-950)
== END 2020-09-25 03:00 | disposition home or self-care (01) ==
LOC: LBO 03:00
PROVIDERS: PCP Internal Medicine; Visit Provider Internal Medicine
DX: C61 Malignant neoplasm of prostate (principal); N13.9 Obstructive and reflux uropathy, unspecified; C79.51 Secondary malignant neoplasm of bone; Z51.11 Encounter for antineoplastic chemotherapy; Z46.6 Encounter for fitting and adjustment of urinary device
CPT/HCPCS: 36415; 51702; 80053; 84153; 84403; 96402; J0897; 85025; 96372; J9217

== ENCOUNTER → 2020-11-03 07:59 | Outpatient (BNVA) | payer MEDICARE, OTHER, SELFPAY | PROVIDERS: PCP Internal Medicine; Visit Provider Nurse Practitioner Gerontology | DX: C61 Malignant neoplasm of prostate (principal); C79.51 Secondary malignant neoplasm of bone; N13.9 Obstructive and reflux uropathy, unspecified; Z46.6 Encounter for fitting and adjustment of urinary device; R23.2 Flushing | CPT/HCPCS: 96402; J0897; 96372; J9217 ==

== ENCOUNTER 2020-11-04 03:44 | Outpatient (CLI) | payer MEDICARE, OTHER, SELFPAY | END 2020-11-04 03:45 | disposition home or self-care (01) | LOC: LBO 03:44 | PROVIDERS: PCP Internal Medicine; Visit Provider Internal Medicine | DX: N39.0 Urinary tract infection, site not specified (principal); N39.490 Overflow incontinence; C61 Malignant neoplasm of prostate; R33.8 Other retention of urine; N13.9 Obstructive and reflux uropathy, unspecified; Z46.6 Encounter for fitting and adjustment of urinary device | CPT/HCPCS: 51702; 81003; 87077; 87086; 87186 ==

== ENCOUNTER 2020-11-05 08:26 | Outpatient (CLI) | payer MEDICARE, OTHER, SELFPAY ==
[2020-11-05 15:33] LABS: Abs Immature Grans 0.03 10^3/uL (0.0-0.06); Absolute Basophil Count 0.02 10^3/uL (0.0-0.2); Absolute Eosinophil Count 0.09 10^3/uL (0.0-0.7); Absolute Lymphocyte Count 1.76 10^3/uL (1.2-3.4); Absolute Monocyte Count 0.82 10^3/uL (0.1-0.8); Absolute Neutrophil Count 5.76 10^3/uL (1.2-6.7); Basophils % 0.2; Eosinophils % 1.1; HCT 40.4 % (40.0-50.0); HGB 12.9 g/dL (13.5-17.5); Immature Grans % 0.4; Lymphocytes % 20.8; MCH 31.1 pg (27.0-33.0); MCHC 31.9 % (32.0-36.0); MCV 97.3 fL (80-95); MPV 8.4 fL (8.0-11.0); Monocytes % 9.7; Neutrophils % 67.8; Nucleated RBC 0 %; Platelet Count 277 10^3/uL (130-400); RBC 4.15 10^6/uL (4.36-5.78); RDW 12.2 % (11.8-14.1); WBC 8.48 10^3/uL (4.4-10.8)
[2020-11-05 15:44] LABS: ALT 22 U/L (16-63); AST 13 U/L (15-37); Albumin 3.4 g/dL (3.4-5.0); Alkaline Phosphatase 105 U/L (46-116); BUN 21 mg/dL (7-18); Bilirubin, Total 0.9 mg/dL (0.2-1.0); CREATININE 1.1 mg/dL (0.70-1.30); Calcium 8.2 mg/dL (8.5-10.1); Chloride 109 mmol/L (98-107); Glucose 140 mg/dL (74-106); Potassium 3.7 mmol/L (3.5-5.1); Sodium 145 mmol/L (136-145); Total Protein 6.5 g/dL (6.4-8.2)
[2020-11-06 18:43] LABS: PSA, Ultrasensitive 2.6 ng/mL (<= 7.2)
[2020-11-08 16:58] LABS: Testosterone, Total <7.0 ng/dL (240-950)
== END 2020-11-05 08:27 | disposition home or self-care (01) ==
LOC: LBO 08:32
PROVIDERS: PCP Internal Medicine; Visit Provider Internal Medicine
DX: C61 Malignant neoplasm of prostate (principal)
CPT/HCPCS: 36415; 80053; 84153; 84403; 85025

== ENCOUNTER 2020-12-12 02:40 | Outpatient (CLI) | payer MEDICARE, OTHER, SELFPAY ==
[2020-12-12 09:39] LABS: Abs Immature Grans 0.06 10^3/uL (0.0-0.06); Absolute Basophil Count 0.03 10^3/uL (0.0-0.2); Absolute Eosinophil Count 0.09 10^3/uL (0.0-0.7); Absolute Lymphocyte Count 2.09 10^3/uL (1.2-3.4); Absolute Monocyte Count 0.91 10^3/uL (0.1-0.8); Absolute Neutrophil Count 4.23 10^3/uL (1.2-6.7); Basophils % 0.4; Eosinophils % 1.2; HCT 39.8 % (40.0-50.0); Immature Grans % 0.8; Lymphocytes % 28.2; MCH 31.2 pg (27.0-33.0); MCHC 32.7 % (32.0-36.0); MCV 95.4 fL (80-95); MPV 8.6 fL (8.0-11.0); Monocytes % 12.3; Neutrophils % 57.1; Nucleated RBC 0 %; Platelet Count 283 10^3/uL (130-400); RBC 4.17 10^6/uL (4.36-5.78); RDW 12.1 % (11.8-14.1); RDW-SD 41.9 fL; WBC 7.41 10^3/uL (4.4-10.8)
[2020-12-12 09:49] LABS: ALT 24 U/L (16-63); AST 18 U/L (15-37); Albumin 3.7 g/dL (3.4-5.0); Alkaline Phosphatase 98 U/L (46-116); Anion Gap 5.8 mmol/L (3-11); BUN 23 mg/dL (7-18); Bilirubin, Total 1.1 mg/dL (0.2-1.0); CO2 31.2 mmol/L (21.0-32.0); CREATININE 1.1 mg/dL (0.70-1.30); Calcium 8.7 mg/dL (8.5-10.1); Chloride 107 mmol/L (98-107); Glucose 101 mg/dL (74-106); Potassium 3.7 mmol/L (3.5-5.1); Sodium 144 mmol/L (136-145); Total Protein 6.8 g/dL (6.4-8.2)
[2020-12-13 14:55] LABS: PSA, Ultrasensitive 0.65 ng/mL (<= 7.2)
== END 2020-12-12 02:41 | disposition home or self-care (01) ==
LOC: LBO 02:40
PROVIDERS: PCP Internal Medicine; Visit Provider Internal Medicine
DX: C61 Malignant neoplasm of prostate (principal); R31.9 Hematuria, unspecified
CPT/HCPCS: 36415; 80053; 84153; 84403; 99213; 85025

== ENCOUNTER → 2020-12-15 11:22 | Outpatient (BNVA) | payer MEDICARE, OTHER, SELFPAY | PROVIDERS: PCP Internal Medicine; Visit Provider Nurse Practitioner Gerontology | DX: C61 Malignant neoplasm of prostate (principal); N13.9 Obstructive and reflux uropathy, unspecified; C79.51 Secondary malignant neoplasm of bone; Z46.6 Encounter for fitting and adjustment of urinary device | CPT/HCPCS: 51702; 96402; J0897; 96372; J9217 ==

== ENCOUNTER → 2021-01-15 09:19 | Outpatient (BNVA) | payer MEDICARE, OTHER, SELFPAY | PROVIDERS: PCP Internal Medicine; Referring Provider Internal Medicine; Visit Provider Nurse Practitioner Gerontology | DX: C61 Malignant neoplasm of prostate (principal); C79.51 Secondary malignant neoplasm of bone; N13.9 Obstructive and reflux uropathy, unspecified; Z46.6 Encounter for fitting and adjustment of urinary device | CPT/HCPCS: 96402; 99213; J0897; 96372; J9217 ==

== ENCOUNTER 2021-02-03 08:32 | Outpatient (CLI) | payer MEDICARE, OTHER, SELFPAY ==
[2021-02-03 09:17] LABS: Abs Immature Grans 0.03 10^3/uL (0.0-0.06); Absolute Basophil Count 0.01 10^3/uL (0.0-0.2); Absolute Eosinophil Count 0.04 10^3/uL (0.0-0.7); Absolute Lymphocyte Count 0.89 10^3/uL (1.2-3.4); Absolute Monocyte Count 0.66 10^3/uL (0.1-0.8); Absolute Neutrophil Count 6.11 10^3/uL (1.2-6.7); Basophils % 0.1; Eosinophils % 0.5; HCT 37.2 % (40.0-50.0); HGB 11.9 g/dL (13.5-17.5); Immature Grans % 0.4; Lymphocytes % 11.5; MCH 30.9 pg (27.0-33.0); MCV 96.6 fL (80-95); Monocytes % 8.5; Nucleated RBC 0 %; Platelet Count 257 10^3/uL (130-400); RBC 3.85 10^6/uL (4.36-5.78); RDW 12.2 % (11.8-14.1); RDW-SD 42.9 fL; WBC 7.74 10^3/uL (4.4-10.8)
[2021-02-03 10:09] LABS: ALT 22 U/L (16-63); AST 14 U/L (15-37); Albumin 3.6 g/dL (3.4-5.0); Alkaline Phosphatase 97 U/L (46-116); Anion Gap 6.9 mmol/L (3-11); BUN 18 mg/dL (7-18); Bilirubin, Total 1.6 mg/dL (0.2-1.0); CO2 32.1 mmol/L (21.0-32.0); Calcium 8.3 mg/dL (8.5-10.1); Chloride 107 mmol/L (98-107); Glucose 109 mg/dL (74-106); Potassium 3.6 mmol/L (3.5-5.1); Sodium 146 mmol/L (136-145); Total Protein 6.2 g/dL (6.4-8.2)
[2021-02-05 12:20] LABS: PSA, Ultrasensitive 0.51 ng/mL (<= 7.2)
[2021-02-05 13:06] LABS: Testosterone, Total <7.0 ng/dL (240-950)
== END 2021-02-03 08:33 | disposition home or self-care (01) ==
LOC: LBO 08:32
PROVIDERS: PCP Internal Medicine; Visit Provider Internal Medicine
DX: C61 Malignant neoplasm of prostate (principal)
CPT/HCPCS: 36415; 80053; 84153; 84403; 85025

== ENCOUNTER 2021-02-06 16:42 | Emergency (ER) | payer MEDICARE, OTHER, SELFPAY ==
[2021-02-06 16:50] VITALS: BP 177/75; PULSE 101; RESP 18; TEMP 36.3; O2SAT 98
[2021-02-06 17:33] LABS: Abs Immature Grans 0.04 10^3/uL (0.0-0.06); Absolute Basophil Count 0.02 10^3/uL (0.0-0.2); Absolute Eosinophil Count 0.05 10^3/uL (0.0-0.7); Absolute Lymphocyte Count 1.49 10^3/uL (1.2-3.4); Absolute Monocyte Count 0.72 10^3/uL (0.1-0.8); Absolute Neutrophil Count 4.66 10^3/uL (1.2-6.7); Basophils % 0.3; Eosinophils % 0.7; HCT 38.4 % (40.0-50.0); HGB 12.4 g/dL (13.5-17.5); Immature Grans % 0.6; Lymphocytes % 21.3; MCH 30.8 pg (27.0-33.0); MCHC 32.3 % (32.0-36.0); MCV 95.5 fL (80-95); MPV 8.5 fL (8.0-11.0); Monocytes % 10.3; Neutrophils % 66.8; Nucleated RBC 0 %; Platelet Count 299 10^3/uL (130-400); RBC 4.02 10^6/uL (4.36-5.78); WBC 6.98 10^3/uL (4.4-10.8)
[2021-02-06 17:47] LABS: ALT 23 U/L (16-63); AST 15 U/L (15-37); Albumin 3.7 g/dL (3.4-5.0); Alkaline Phosphatase 107 U/L (46-116); Anion Gap 7.7 mmol/L (3-11); BUN 18 mg/dL (7-18); Bilirubin, Direct 0.2 mg/dL (0.0-0.2); Bilirubin, Total 0.8 mg/dL (0.2-1.0); CO2 31.3 mmol/L (21.0-32.0); CREATININE 1.2 mg/dL (0.70-1.30); Calcium 8.6 mg/dL (8.5-10.1); Chloride 106 mmol/L (98-107); Estimated GFR 57.54 (mL/min/1.73m2); Glucose 101 mg/dL (74-106); Lipase 51 U/L (73-393); Potassium 3.3 mmol/L (3.5-5.1); Sodium 145 mmol/L (136-145); Total Protein 7.3 g/dL (6.4-8.2)
--- NOTE | 2021-02-06 18:50 | W.ED.GENAD ---
Discharge Plan Disposition Patient Disposition: HOME Condition: Stable Discharge Details Clinical Impression: Discolored skin, Hypokalemia Primary Care Provider: Sky Aviles ED Provider: Dinesh Page Home Meds and New Rx's Prescriptions: Continued amlodipine 5 mg tablet 5 mg PO DAILY RF: 0 atorvastatin 20 mg tablet 20 mg PO HS RF: 0 prednisone 5 mg tablet 5 mg PO DAILY RF: 0 calcium carbonate-vitamin D3 600 mg(1,500mg) -200 unit tablet 600 tab PO DAILY RF: 0 sulfamethoxazole 500 mg Tablet 500 mg PO DAILY RF: 0 No Action bicalutamide [Casodex] 50 mg tablet 50 mg PO DAILY Qty: 30 RF: 0 abiraterone 250 mg Tablet 250 mg PO DAILY RF: 0 Discharge Instructions Instructions: Hypokalemia (ED) Additional Instructions: Your potassium level today was mildly low at 3.3. This was corrected with an oral tablet. Please hold your chemotherapy until discussed with your oncologist. Please contact your primary care physician to arrange follow-up. Return to the ER immediately for any worsening or new concerning symptoms. Referrals: Quentin Otoole [ [facility] STAFF PHYSICIAN] - Sky Aviles MD [Primary Care Provider] - Discharge Data Discharge Date/Time-TO BE ENTERED AT DEPARTURE: 02/06/21 19:08 Medical Decision Making 85-year-old male with metastatic prostate cancer on chemo here with concern for skin discoloration. No significant discoloration noted on exam. Patient otherwise asymptomatic with no concerning findings on exam. Labs reviewed to assess for hepatitis and normal LFTs, normal bilirubin. Hemoglobin stable. Mild hypokalemia. I will give K-Dur 20 mEq. Results reviewed with patient and he was reassured. Patient was advised to follow-up with oncology and usual customary discharge instructions were reviewed with the patient. HPI General Mode of arrival: ambulatory. Date/Time Provider Initiated Documentation: 02/06/21 17:17. Limitations to Documentation: no limitations. Information obtained by: patient. HPI Narrative: 85-year-old male with history of metastatic prostate cancer, on chemotherapy, sent by cancer center for evaluation given reported jaundice. Patient notes that earlier today his daughter was concerned with the skin coloration and contacted cancer center. Given this report they recommended that he come to the emergency department. Patient denies concerns and specifically notes that he is not sure why he is here tonight. Patient denies pain. Related Data Home Medications Medication Instructions Recorded Confirmed amlodipine 5 mg PO DAILY 02/26/20 02/06/21 bicalutamide 50 mg tablet 50 mg PO DAILY #30 tab 04/25/20 01/15/21 abiraterone 250 mg PO DAILY 02/06/21 02/06/21 atorvastatin 20 mg PO HS 02/06/21 02/06/21 calcium carbonate-vitamin D3 600 tab PO DAILY 02/06/21 02/06/21 prednisone 5 mg PO DAILY 02/06/21 02/06/21 sulfamethoxazole 500 mg PO DAILY 02/06/21 02/06/21 Previous Rx's Medication Instructions Recorded bicalutamide 50 mg tablet 50 mg PO DAILY #30 tab 04/25/20 Allergies Allergy/AdvReac Type Severity Reaction Status Date / Time lisinopril Allergy Severe Unverified 02/06/21 16:54 bee venom protein (honey bee) Allergy Unverified 02/06/21 16:55 General Stated Complaint: GenMedical KALINA: 3 Review of Systems All systems reviewed & are unremarkable except as noted in HPI and below Constitutional Constitutional: Denies fever(s) Cardiovascular Cardiovascular: Denies chest pain Respiratory Respiratory: Denies cough Gastrointestinal Gastrointestinal: Denies abdominal pain Integumentary/Breasts Skin/Breast: Reports as per HPI [facility] Active Problem List Discolored skin (Acute) Hypokalemia (Acute) Prostate cancer (Chronic) Obstructive uropathy (Acute) Overflow incontinence of urine (Acute) Elevated PSA (Acute) Medical History Abdominal bloating Bilateral cataracts Heart murmur Pt. denies this Hx of adenomatous colonic polyps Hyperlipemia Hypertension Lichenoid drug reaction Seborrheic keratoses Urinary frequency Surgical History History of colonoscopy Social History Smoking/Tobacco Use Status: Former Tobacco Use Quit Date: 03/21/59 Smoking risk assessment performed?: Yes Alcohol Intake: current Alcohol Intake frequency: 0-2 drinks per day Alcohol type: beer Drug use: Never Substance use type: does not use Do you feel safe at home: Yes Do you feel safe in your relationship?: Yes Exam Const General: cooperative and no acute distress HENWA Head: No periorbital ecchymosis Face and sinus: face symmetric, no ecchymosis and no tenderness Mouth: moist mucous membranes Eyes Conjunctivae: normal conjunctivae Sclera: normal sclerae Neck Neck: trachea midline and supple Resp Auscultation: clear to auscultation bilaterally, no rales, no rhonchi and no wheezes Cardio Rate: regular rate and not tachycardic Rhythm: regular rhythm GI Palpation: soft, not firm, no guarding, no masses, not rigid and nontender Skin General skin exam: no rashes or lesions noted, turgor normal and no jaundice Neuro General: patient alert, patient awake, patient oriented x3 and tone normal Extrem General: no edema Psych Appearance: grossly normal Mental Status: mental status grossly normal Speech and Movement: speech and movement normal Course Vital Signs Vital signs: Vital Signs Temperature 36.3 C L 02/06/21 16:50 Pulse 101 H 02/06/21 16:50 Respiratory Rate 18 02/06/21 16:50 Blood Pressure 177/75 H 02/06/21 16:50 Pulse Oximetry 98 02/06/21 16:50 Temperature 36.3 C L 02/06/21 16:50 Temperature Source Temporal Artery Scan 02/06/21 16:50 Pulse 101 H 02/06/21 16:50 Respiratory Rate 18 02/06/21 16:50 Respiratory Effort 02/06/21 17:21 Blood Pressure 177/75 H 02/06/21 16:50 Blood Pressure Position Sitting 02/06/21 16:50 Pulse Oximetry 98 02/06/21 16:50 Oxygen Delivery Method Room Air 02/06/21 16:50 Oxygen Flow Rate 0 02/06/21 16:50 Pain Level 0 02/06/21 16:50 Lab/Test Results Lab/Test Results: Laboratory Tests Range/Units 02/06/21 02/06/21 17:10 17:10 WBC (4.4-10.8) 10^3/uL 6.98 RBC (4.36-5.78) 10^6/uL 4.02 L Hgb (13.5-17.5) g/dL 12.4 L Hct (40.0-50.0) % 38.4 L MCV (80-95) fL 95.5 H MCH (27.0-33.0) pg 30.8 MCHC (32.0-36.0) % 32.3 RDW (11.8-14.1) % 12.0 Plt Count (130-400) 10^3/uL 299 MPV (8.0-11.0) fL 8.5 Immature Gran % 0.6 Neutrophils % 66.8 Lymphocytes % 21.3 Monocytes % 10.3 Eosinophils % 0.7 Basophils % 0.3 Nucleated RBC % % 0 Absolute Neutrophils (1.2-6.7) 10^3/uL 4.66 Absolute Lymphocytes (1.2-3.4) 10^3/uL 1.49 Absolute Monocytes (0.1-0.8) 10^3/uL 0.72 Absolute Eosinophils (0.0-0.7) 10^3/uL 0.05 Absolute Basophils (0.0-0.2) 10^3/uL 0.02 Sodium (136-145) mmol/L 145 Potassium (3.5-5.1) mmol/L 3.3 L Chloride (98-107) mmol/L 106 Carbon Dioxide (21.0-32.0) mmol/L 31.3 Anion Gap (3-11) mmol/L 7.7 BUN (7-18) mg/dL 18 Creatinine (0.70-1.30) mg/dL 1.2 Estimated GFR/1.73 m2 (mL/min/1.73m2) 57.54 Glucose (74-106) mg/dL 101 Calcium (8.5-10.1) mg/dL 8.6 Total Bilirubin (0.2-1.0) mg/dL 0.8 Conjugated Bilirubin (0.0-0.2) mg/dL 0.2 AST (15-37) U/L 15 ALT (16-63) U/L 23 Alkaline Phosphatase (46-116) U/L 107 Total Protein (6.4-8.2) g/dL 7.3 Albumin (3.4-5.0) g/dL 3.7 Lipase (73-393) U/L 51 PAWSS Have you Been Recently Intoxicated or Drunk Within the Last 30 days?: No Have you Ever Experienced Previous Episodes of Alcohol Withdrawal?: No Have you ever Experienced Withdrawal Seizures?: No Have you ever Experienced Delirium Tremens(DT)s?: No Have you ever undergone Alcohol Rehabilitation Treatment (i.e, inpt ot outpatient treatment programs)?: No Have you ever Experienced Blackouts?: No Have you ever Combined Alcohol with other Downers within the last 90 days?: No Have you ever Combined Alcohol with any other Substance of Abuse during the last 90 days?: No Positive Blood Alcohol level on Presentation? [PCS.BAL]: No Evidence of Increased Autonomic Activity (i.e. HR>120, tremor, sweating, agitation, nausea)?: No Result: 0
[2021-02-06] MEDS: Potassium Chloride 20 MEQ TABCR PO (19:01)
[2021-02-06 19:08] VITALS: PULSE 98; TEMP 36.6; O2SAT 95
== END 2021-02-06 19:08 | disposition home or self-care (01) ==
PROVIDERS: Emergency Provider Student in an Organized Health Care Education/Training Program; PCP Internal Medicine
DX: E87.6 Hypokalemia (principal); R23.8 Other skin changes; Z79.899 Other long term (current) drug therapy; C61 Malignant neoplasm of prostate
CPT/HCPCS: 36415; 80053; 80076; 83690; 99283; 85025

== ENCOUNTER → 2021-02-18 14:56 | Outpatient (BNVA) | payer MEDICARE, OTHER, SELFPAY | PROVIDERS: PCP Internal Medicine; Visit Provider Nurse Practitioner Gerontology | DX: C61 Malignant neoplasm of prostate (principal); C79.51 Secondary malignant neoplasm of bone; N13.9 Obstructive and reflux uropathy, unspecified | CPT/HCPCS: 96402; J0897; 96372; J9217 ==

== ENCOUNTER 2021-03-11 01:33 | Outpatient (CLI) | payer MEDICARE, OTHER, SELFPAY ==
[2021-03-11 09:52] LABS: Abs Immature Grans 0.03 10^3/uL (0.0-0.06); Absolute Basophil Count 0.02 10^3/uL (0.0-0.2); Absolute Eosinophil Count 0.12 10^3/uL (0.0-0.7); Absolute Lymphocyte Count 1.89 10^3/uL (1.2-3.4); Absolute Monocyte Count 0.78 10^3/uL (0.1-0.8); Absolute Neutrophil Count 4.34 10^3/uL (1.2-6.7); Basophils % 0.3; Eosinophils % 1.7; HCT 40.7 % (40.0-50.0); Immature Grans % 0.4; Lymphocytes % 26.3; MCHC 31.9 % (32.0-36.0); MCV 96.9 fL (80-95); MPV 8.4 fL (8.0-11.0); Monocytes % 10.9; Neutrophils % 60.4; Nucleated RBC 0 %; Platelet Count 263 10^3/uL (130-400); RDW 12.4 % (11.8-14.1); RDW-SD 44.2 fL; WBC 7.18 10^3/uL (4.4-10.8)
[2021-03-11 10:06] LABS: ALT 29 U/L (16-63); AST 18 U/L (15-37); Albumin 3.8 g/dL (3.4-5.0); Alkaline Phosphatase 91 U/L (46-116); Anion Gap 4.9 mmol/L (3-11); BUN 19 mg/dL (7-18); Bilirubin, Total 1.3 mg/dL (0.2-1.0); CO2 32.1 mmol/L (21.0-32.0); Calcium 8.7 mg/dL (8.5-10.1); Chloride 106 mmol/L (98-107); Glucose 117 mg/dL (74-106); Potassium 3.7 mmol/L (3.5-5.1); Sodium 143 mmol/L (136-145)
[2021-03-11] MEDS: Breeza Beverage 473 ML BTL PO (10:11)
[2021-03-11] MEDS: Omnipaque 350 MG/ML 50 ML BTL IJ (10:13)
--- NOTE | 2021-03-11 10:30 | DI.NM_ITS ---
Exam(s) IN BONE SCAN WHOLE BODY GRP EXAM: IN BONE SCAN WHOLE BODY GRP CLINICAL HISTORY: PROSTATE CANCER METASTATIC TO BONE C61 C79.51. TECHNIQUE: Injected Dose: 25 mCi Tc-99m MDP Delayed Images: 2-3 hours. COMPARISON: [facility] BONE SCAN WHOLE BODY GRP from 05/16/2020 FINDINGS: Symmetric axial uptake. Bilateral renal excretion is identified. There is again seen diffuse uptake o f radiotracer consistent with osseous metastatic disease. Several of the lesions are much less consp icuous on the current examination. No new lesions are identified. IMPRESSION: 1. Findings of diffuse osseous metastatic disease. The lesions have decreased in size and conspicuit y since 05/16/2020. DATA REPOSITORY:
[2021-03-11] MEDS: Omnipaque 350 MG/ML 100 ML BTL IJ (10:55)
[2021-03-11] MEDS: Normal Saline Flush 10 ML SYR IVP (10:57)
--- NOTE | 2021-03-11 11:00 | DI.CT_ITS ---
Exam(s) CT CHEST/ABD/PEL W EXAM: CT CHEST/ABD/PEL W CLINICAL HISTORY: PROSTATE CANCER METASTATIC TO BONE C61 C79.51 TECHNIQUE: Imaging Protocol: Axial computed tomography images with coronal and sagittal reformatted images were created and reviewed CONTRAST MATERIAL: Intravenous: Omnipaque 350 Contrast volume:100 mL Oral: Yes COMPARISON: CT CT CHEST/ABD/PEL WO from 04/15/[address] CHEST/ABD/PEL WO from 04/15/2020 NM NM BONE SCAN WHOLE BODY GRP from 05/16/2020 FINDINGS: The examination is limited due to patient motion artifact. CHEST: Tracheobronchial tree: Patent where visualized. Pulmonary parenchyma: No consolidation or dominant measurable mass. Centrilobular emphysematous moctezuma es are present. Stable left lower lobe pleural based pulmonary nodule. No new pulmonary nodules. Visualized thyroid gland: Unremarkable. Mediastinum and Gregoria: No dominant adenopathy or fluid collection. The esophagus is unremarkable. Pleura: No effusion or pneumothorax. Heart: Mild cardiomegaly. Coronary artery calcifications are present. No pericardial effusion. Pulmonary arteries: Patient motion limits evaluation of pulmonary arteries peripherally. No central pulmonary embolus is identified. Aorta: Thoracic aorta non-dilated. Atherosclerosis. No evidence of dissection. Lymph nodes: Within normal limits. Soft tissues: Unremarkable. Bones:Widespread osseous metastatic disease. No acute fracture or subluxation is seen in the thoraci c spine. ABDOMEN: Liver: Normal density. No measurable mass. Portal, Superior Mesenteric, and Splenic Veins: Unremarkable. Gallbladder and Biliary Tract: No radiodense calculus or dilation. Pancreas: Normal density, no abnormal calcifications or inflammatory process. Spleen: Normal. Adrenals: No masses seen. Kidneys: Normal size, contour and axis. No radiodense stones or obstructive uropathy. Bilateral renal cysts. Abdominal Aorta: Abdominal portion non-dilated. Atherosclerosis. Bowel: No evidence of obstruction. There is diffuse thickening of the wall of the distal rectum. Di verticulosis of the sigmoid colon is noted but no evidence of acute diverticulitis. Appendix is unre markable. Peritoneal Cavity: No ascites, collection or mesenteric inflammatory response. No free air. Lymph Nodes: Within normal limits. Bones: Widespread osseous metastatic disease is present. No acute fracture or subluxation is seen in the spine. Soft Tissues: Bilateral fat containing inguinal hernia. PELVIS: Bladder: There is diffuse thickening of the wall of the urinary bladder. Cystitis should be consider ed. Reproductive Organs: Prostate gland is enlarged. Lymph Nodes: Within normal limits. Bones: Widespread osseous metastatic disease is present. IMPRESSION: 1. Findings again seen of widespread osseous metastatic disease. 2. Thickening of the wall of the distal rectum. Infectious/inflammatory process should be considered . In addition treatment related proctitis may be considered in the appropriate clinical setting. 3. Diffuse thickening of the wall of the urinary bladder. Cystitis should be considered. 4. Prostatic enlargement. 5. Stable left lower lobe pulmonary nodule. RADIATION DOSE DELIVERED: 1,756.05mGy.cm Total DLP DATA REPOSITORY: All CT scans at this facility are submitted to the National Radiology Data Registry (NRDR) Dose Index Registry (DIR) with the [employer] (ACR). RADIATION OPTIMIZATION: All CT scans at this facility use at least one of these dose optimization te chniques: automated exposure control; mA and/or kV adjustment per patient size (includes targeted exa ms where dose is matched to clinical indication); or iterative reconstruction.
[2021-03-12 12:22] LABS: PSA, Ultrasensitive 0.26 ng/mL (<= 7.2)
[2021-03-14 15:44] LABS: Testosterone, Total <7.0 ng/dL (240-950)
== END 2021-03-11 01:53 ==
PROVIDERS: PCP Internal Medicine; Visit Provider Internal Medicine
DX: C61 Malignant neoplasm of prostate (principal); C79.51 Secondary malignant neoplasm of bone; J43.2 Centrilobular emphysema; K57.30 Diverticulosis of large intestine without perforation or abscess without bleeding; K62.89 Other specified diseases of anus and rectum; N32.89 Other specified disorders of bladder; R91.1 Solitary pulmonary nodule
CPT/HCPCS: 74177; 78306; 80053; 84153; 84403; 71260; 85025; J3490; Q9967

== ENCOUNTER → 2021-03-17 14:22 | Outpatient (BNVA) | payer MEDICARE, OTHER, SELFPAY | PROVIDERS: PCP Internal Medicine; Visit Provider Nurse Practitioner Gerontology | DX: C61 Malignant neoplasm of prostate (principal); C79.51 Secondary malignant neoplasm of bone; N13.9 Obstructive and reflux uropathy, unspecified; Z51.11 Encounter for antineoplastic chemotherapy | CPT/HCPCS: 96402; J0897; 96372; J9217 ==

== ENCOUNTER 2021-04-08 02:08 | Outpatient (CLI) | payer MEDICARE, OTHER, SELFPAY ==
[2021-04-08 10:17] LABS: Abs Immature Grans 0.04 10^3/uL (0.0-0.06); Absolute Basophil Count 0.01 10^3/uL (0.0-0.2); Absolute Eosinophil Count 0.03 10^3/uL (0.0-0.7); Absolute Lymphocyte Count 1.86 10^3/uL (1.2-3.4); Absolute Monocyte Count 0.66 10^3/uL (0.1-0.8); Absolute Neutrophil Count 6.43 10^3/uL (1.2-6.7); Basophils % 0.1; Eosinophils % 0.3; HCT 42.5 % (40.0-50.0); HGB 13.7 g/dL (13.5-17.5); Immature Grans % 0.4; Lymphocytes % 20.6; MCH 30.6 pg (27.0-33.0); MCHC 32.2 % (32.0-36.0); MCV 95.1 fL (80-95); MPV 8.3 fL (8.0-11.0); Monocytes % 7.3; Neutrophils % 71.3; Nucleated RBC 0 %; Platelet Count 303 10^3/uL (130-400); RBC 4.47 10^6/uL (4.36-5.78); RDW 12.1 % (11.8-14.1); RDW-SD 42.4 fL; WBC 9.03 10^3/uL (4.4-10.8)
[2021-04-08 10:31] LABS: ALT 25 U/L (16-63); AST 20 U/L (15-37); Albumin 4.1 g/dL (3.4-5.0); Alkaline Phosphatase 103 U/L (46-116); Anion Gap 7.2 mmol/L (3-11); BUN 24 mg/dL (7-18); Bilirubin, Total 1.2 mg/dL (0.2-1.0); CO2 26.8 mmol/L (21.0-32.0); CREATININE 1.1 mg/dL (0.70-1.30); Chloride 105 mmol/L (98-107); Glucose 137 mg/dL (74-106); Potassium 4.4 mmol/L (3.5-5.1); Sodium 139 mmol/L (136-145); Total Protein 7.4 g/dL (6.4-8.2)
[2021-04-09 19:34] LABS: PSA, Ultrasensitive 0.37 ng/mL (<= 7.2)
[2021-04-11 09:03] LABS: Testosterone, Total <7.0 ng/dL (240-950)
== END 2021-04-08 02:09 | disposition home or self-care (01) ==
LOC: LBO 02:08
PROVIDERS: PCP Internal Medicine; Visit Provider Internal Medicine
DX: C61 Malignant neoplasm of prostate (principal)
CPT/HCPCS: 36415; 80053; 84153; 84403; 85025

== ENCOUNTER → 2021-04-21 09:24 | Outpatient (BNVA) | payer MEDICARE, OTHER, SELFPAY | PROVIDERS: PCP Internal Medicine; Visit Provider Nurse Practitioner Gerontology | DX: C61 Malignant neoplasm of prostate (principal); N13.9 Obstructive and reflux uropathy, unspecified; C79.51 Secondary malignant neoplasm of bone; Z51.11 Encounter for antineoplastic chemotherapy | CPT/HCPCS: 96402; J0897; 96372; J9217 ==

== ENCOUNTER 2021-07-14 05:26 | Outpatient (CLI) | payer MEDICARE, OTHER, SELFPAY ==
[2021-07-14 14:15] LABS: Abs Immature Grans 0.03 10^3/uL (0.0-0.06); Absolute Basophil Count 0.02 10^3/uL (0.0-0.2); Absolute Eosinophil Count 0.03 10^3/uL (0.0-0.7); Absolute Lymphocyte Count 1.47 10^3/uL (1.2-3.4); Absolute Monocyte Count 0.65 10^3/uL (0.1-0.8); Absolute Neutrophil Count 5.68 10^3/uL (1.2-6.7); Basophils % 0.3; Eosinophils % 0.4; HCT 40.2 % (40.0-50.0); Immature Grans % 0.4; Lymphocytes % 18.7; MCH 31.1 pg (27.0-33.0); MCHC 32.3 % (32.0-36.0); MCV 96.2 fL (80-95); MPV 8.3 fL (8.0-11.0); Monocytes % 8.2; Platelet Count 283 10^3/uL (130-400); RBC 4.18 10^6/uL (4.36-5.78); RDW 12.3 % (11.8-14.1); RDW-SD 43.6 fL; WBC 7.88 10^3/uL (4.4-10.8)
[2021-07-14 15:50] LABS: ALT 27 U/L (16-63); AST 17 U/L (15-37); Albumin 4.1 g/dL (3.4-5.0); Alkaline Phosphatase 101 U/L (46-116); Anion Gap 6.3 mmol/L (3-11); BUN 24 mg/dL (7-18); Bilirubin, Total 1.1 mg/dL (0.2-1.0); CO2 30.7 mmol/L (21.0-32.0); CREATININE 1.1 mg/dL (0.70-1.30); Chloride 106 mmol/L (98-107); Glucose 152 mg/dL (74-106); Potassium 4.1 mmol/L (3.5-5.1); Sodium 143 mmol/L (136-145); Total Protein 6.8 g/dL (6.4-8.2)
[2021-07-18 15:43] LABS: Testosterone, Total <7.0 ng/dL (240-950)
== END 2021-07-14 05:27 | disposition home or self-care (01) ==
LOC: LBO 05:27
PROVIDERS: PCP Internal Medicine; Visit Provider Internal Medicine
DX: C79.51 Secondary malignant neoplasm of bone (principal); C61 Malignant neoplasm of prostate
CPT/HCPCS: 36415; 80053; 84153; 84403; 85025

== ENCOUNTER 2021-10-05 02:05 | Outpatient (CLI) | payer MEDICARE, OTHER, SELFPAY ==
[2021-10-05 09:55] LABS: Abs Immature Grans 0.02 10^3/uL (0.0-0.06); Absolute Basophil Count 0.02 10^3/uL (0.0-0.2); Absolute Eosinophil Count 0.08 10^3/uL (0.0-0.7); Absolute Lymphocyte Count 1.38 10^3/uL (1.2-3.4); Absolute Monocyte Count 0.58 10^3/uL (0.1-0.8); Absolute Neutrophil Count 4.86 10^3/uL (1.2-6.7); Basophils % 0.3; Eosinophils % 1.2; HCT 39.9 % (40.0-50.0); HGB 13.1 g/dL (13.5-17.5); Immature Grans % 0.3; Lymphocytes % 19.9; MCHC 32.8 % (32.0-36.0); MCV 94 fL (80-95); MPV 8.4 fL (8.0-11.0); Monocytes % 8.4; Neutrophils % 69.9; Platelet Count 272 10^3/uL (130-400); RBC 4.23 10^6/uL (4.36-5.78); RDW 12.1 % (11.8-14.1); RDW-SD 41.4 fL; WBC 6.94 10^3/uL (4.4-10.8)
[2021-10-05 10:22] LABS: ALT 24 U/L (16-63); AST 18 U/L (15-37); Albumin 3.7 g/dL (3.4-5.0); Alkaline Phosphatase 83 U/L (46-116); Anion Gap 6.8 mmol/L (3-11); BUN 22 mg/dL (7-18); Bilirubin, Total 0.8 mg/dL (0.2-1.0); CO2 30.2 mmol/L (21.0-32.0); CREATININE 0.9 mg/dL (0.70-1.30); Calcium 9.1 mg/dL (8.5-10.1); Chloride 106 mmol/L (98-107); Glucose 97 mg/dL (74-106); Potassium 4.3 mmol/L (3.5-5.1); Sodium 143 mmol/L (136-145); Total Protein 6.9 g/dL (6.4-8.2)
[2021-10-06 16:27] LABS: PSA, Ultrasensitive 0.17 ng/mL (<= 7.2)
[2021-10-09 13:18] LABS: Testosterone, Total <7.0 ng/dL (240-950)
== END 2021-10-05 02:06 | disposition home or self-care (01) ==
LOC: LBO 02:05
PROVIDERS: PCP Internal Medicine; Visit Provider Internal Medicine
DX: C61 Malignant neoplasm of prostate (principal); C79.51 Secondary malignant neoplasm of bone
CPT/HCPCS: 36415; 80053; 84153; 84403; 85025

== ENCOUNTER 2021-12-28 03:03 | Outpatient (CLI) | payer MEDICARE, OTHER, SELFPAY ==
[2021-12-28 12:42] LABS: Abs Immature Grans 0.04 10^3/uL (0.0-0.06); Absolute Basophil Count 0.02 10^3/uL (0.0-0.2); Absolute Eosinophil Count 0.04 10^3/uL (0.0-0.7); Absolute Lymphocyte Count 1.47 10^3/uL (1.2-3.4); Absolute Monocyte Count 0.57 10^3/uL (0.1-0.8); Basophils % 0.3; Eosinophils % 0.5; HCT 39.1 % (40.0-50.0); HGB 12.9 g/dL (13.5-17.5); Immature Grans % 0.5; Lymphocytes % 18.5; MCH 30.9 pg (27.0-33.0); MCV 94 fL (80-95); MPV 8.7 fL (8.0-11.0); Monocytes % 7.2; Platelet Count 296 10^3/uL (130-400); RBC 4.18 10^6/uL (4.36-5.78); RDW-SD 41.3 fL; WBC 7.94 10^3/uL (4.4-10.8)
[2021-12-28 13:06] LABS: ALT 18 U/L (16-63); AST 13 U/L (15-37); Albumin 3.8 g/dL (3.4-5.0); Alkaline Phosphatase 102 U/L (46-116); Anion Gap 9.3 mmol/L (3-11); BUN 20 mg/dL (7-18); Bilirubin, Total 1.2 mg/dL (0.2-1.0); CO2 29.7 mmol/L (21.0-32.0); Calcium 8.9 mg/dL (8.5-10.1); Chloride 105 mmol/L (98-107); Glucose 148 mg/dL (74-106); Potassium 3.4 mmol/L (3.5-5.1); Sodium 144 mmol/L (136-145); Total Protein 7.1 g/dL (6.4-8.2)
[2021-12-29 16:39] LABS: PSA, Ultrasensitive 0.27 ng/mL (<= 7.2)
[2021-12-31 15:21] LABS: Testosterone, Total <7.0 ng/dL (240-950)
== END 2021-12-28 03:04 | disposition home or self-care (01) ==
LOC: LBO 03:03
PROVIDERS: PCP Internal Medicine; Visit Provider Internal Medicine
DX: C61 Malignant neoplasm of prostate (principal); C79.51 Secondary malignant neoplasm of bone
CPT/HCPCS: 36415; 80053; 84153; 84403; 85025

== ENCOUNTER 2022-03-19 02:48 | Outpatient (CLI) | payer MEDICARE, OTHER, SELFPAY ==
[2022-03-19 09:00] LABS: Abs Immature Grans 0.04 10^3/uL (0.0-0.06); Absolute Basophil Count 0.02 10^3/uL (0.0-0.2); Absolute Eosinophil Count 0.05 10^3/uL (0.0-0.7); Absolute Lymphocyte Count 1.26 10^3/uL (1.2-3.4); Absolute Monocyte Count 0.55 10^3/uL (0.1-0.8); Absolute Neutrophil Count 5.65 10^3/uL (1.2-6.7); Basophils % 0.3; Eosinophils % 0.7; HCT 39.6 % (40.0-50.0); HGB 12.9 g/dL (13.5-17.5); Immature Grans % 0.5; Lymphocytes % 16.6; MCHC 32.6 % (32.0-36.0); MCV 95 fL (80-95); MPV 8.4 fL (8.0-11.0); Monocytes % 7.3; Neutrophils % 74.6; Platelet Count 264 10^3/uL (130-400); RBC 4.16 10^6/uL (4.36-5.78); RDW 12.4 % (11.8-14.1); RDW-SD 43.3 fL; WBC 7.57 10^3/uL (4.4-10.8)
[2022-03-19 09:47] LABS: ALT 18 U/L (16-63); AST 18 U/L (15-37); Albumin 3.9 g/dL (3.4-5.0); Alkaline Phosphatase 89 U/L (46-116); Anion Gap 2.9 mmol/L (3-11); BUN 15 mg/dL (7-18); Bilirubin, Total 0.8 mg/dL (0.2-1.0); CO2 33.1 mmol/L (21.0-32.0); Calcium 9.3 mg/dL (8.5-10.1); Chloride 108 mmol/L (98-107); Glucose 91 mg/dL (74-106); Sodium 144 mmol/L (136-145); Total Protein 6.9 g/dL (6.4-8.2)
[2022-03-23 09:13] LABS: Testosterone, Total <7.0 ng/dL (240-950)
[2022-03-23 22:39] LABS: PSA, Ultrasensitive 0.17 ng/mL (<= 7.2)
== END 2022-03-19 02:49 | disposition home or self-care (01) ==
PROVIDERS: PCP Internal Medicine; Visit Provider Internal Medicine
DX: C61 Malignant neoplasm of prostate (principal); C79.51 Secondary malignant neoplasm of bone
CPT/HCPCS: 36415; 80053; 84153; 84403; 85025

== ENCOUNTER 2022-06-09 01:14 | Outpatient (CLI) | payer MEDICARE, OTHER, SELFPAY ==
--- NOTE | 2022-06-09 | DI.CT_ITS ---
Exam(s) CT CHEST/ABD/PEL W EXAM: CT CHEST/ABD/PEL W CLINICAL HISTORY: METASTATIC TO BONE PROSTATE CA,C61,C79.51,ASSESS TREATMENT RESPONSE TECHNIQUE: Imaging Protocol: Axial computed tomography images with coronal and sagittal reformatted images were created and reviewed CONTRAST MATERIAL: Intravenous: Omnipaque 350 contrast volume:100 mL Oral: Yes COMPARISON: CT CT CHEST/ABD/PEL W from 03/11/2021 FINDINGS: The examination is limited due to patient motion artifact. CHEST: Tracheobronchial tree: Patent where visualized. Pulmonary parenchyma: Emphysematous changes are present in the lungs. The left lower lobe subpleural nodule is not visualized on this occurrence examination. No pulmonary nodules or infiltrates are se en. Visualized thyroid gland: Unremarkable. Mediastinum and Gregoria: No dominant adenopathy or fluid collection. The esophagus is unremarkable. Pleura: No effusion or pneumothorax. Heart: The heart is not dilated. Coronary artery calcifications are present. No pericardial effusion . Pulmonary arteries: No pulmonary emboli are identified. The segmental and subsegmental pulmonary art eries are not visualized secondary to patient motion artifact. Aorta: Thoracic aorta non-dilated. Atherosclerosis is present. Lymph nodes: Within normal limits. Soft tissues: Unremarkable. Bones:There is widespread osseous metastatic disease. ABDOMEN: Liver: Normal density. No measurable mass. Portal, Superior Mesenteric, and Splenic Veins: Unremarkable. Gallbladder and Biliary Tract: No radiodense calculus or dilation. Pancreas: Normal density, no abnormal calcifications or inflammatory process. Spleen: Normal. Adrenals: No masses seen. Kidneys: Normal size, contour and axis. No radiodense stones or obstructive uropathy. No masses seen. Abdominal Aorta: Abdominal portion non-dilated. Atherosclerosis. Bowel: There is diverticulosis seen in the sigmoid colon, but no evidence of acute diverticulitis. A ppendix is unremarkable. There is no evidence of bowel obstruction or bowel wall thickening. Peritoneal Cavity: No ascites, collection or mesenteric inflammatory response. No free air. Lymph Nodes: Within normal limits. Bones: Within normal limits for the patient's age. There is diffuse sclerotic metastatic disease. Soft Tissues: Unremarkable. PELVIS: Bladder: There is diffuse thickening of the wall of the urinary bladder which may be secondary to chr onic bladder outlet obstruction. Reproductive Organs: The prostate gland is enlarged. Lymph Nodes: Within normal limits. Bones: There is diffuse osseous sclerotic metastatic disease. IMPRESSION: 1. Findings of diffuse osseous metastatic disease secondary to prostate carcinoma. 2. Enlarged prostate gland. 3. The left lower lobe pulmonary nodule is not visualized on the current examination. This may be in part due to the patient motion artifact. RADIATION DOSE DELIVERED: 1,627.32mGy.cm Total DLP DATA REPOSITORY: All CT scans at this facility are submitted to the National Radiology Data Registry (NRDR) Dose Index Registry (DIR) with the [employer] (ACR). RADIATION OPTIMIZATION: All CT scans at this facility use at least one of these dose optimization te chniques: automated exposure control; mA and/or kV adjustment per patient size (includes targeted exa ms where dose is matched to clinical indication); or iterative reconstruction.
[2022-06-09] MEDS: Barium Sulfate 2% W/V-Berry Smoothie 450 ML BTL 900 ML PO (08:57)
[2022-06-09 09:14] LABS: ALT 16 U/L (16-63); AST 15 U/L (15-37); Albumin 3.6 g/dL (3.4-5.0); Alkaline Phosphatase 89 U/L (46-116); BUN 17 mg/dL (7-18); Bilirubin, Total 1.2 mg/dL (0.2-1.0); CREATININE 0.9 mg/dL (0.70-1.30); Calcium 8.6 mg/dL (8.5-10.1); Chloride 109 mmol/L (98-107); Estimated GFR 83.18 (mL/min/1.73m2); Glucose 116 mg/dL (74-106); Potassium 3.3 mmol/L (3.5-5.1); Sodium 145 mmol/L (136-145); Total Protein 6.8 g/dL (6.4-8.2)
--- NOTE | 2022-06-09 10:00 | DI.NM_ITS ---
Exam(s) WA BONE SCAN WHOLE BODY GRP EXAM: WA BONE SCAN WHOLE BODY GRP CLINICAL HISTORY: PROSTATE CA METASTATIC TO BONE,C61,C79.51,RESTAGING EXAM. TECHNIQUE: Injected Dose: 26 mCi Tc-99m MDP Delayed Images: 2-3 hours. COMPARISON: [facility] BONE SCAN WHOLE BODY GRP from 03/11/2021 FINDINGS: Symmetric axial uptake. Bilateral renal excretion is identified. There are multiple areas of increase d uptake in the axial and appendicular skeleton consistent with osseous metastatic disease. Some of the lesions are less prominent on the current examination. There are however no new foci of increase d uptake seen when compared to 05/1003/22/2020. IMPRESSION: 1. No new osseous metastatic disease. 2. Decreased conspicuity of multiple previously seen metastases. DATA REPOSITORY:
[2022-06-09] MEDS: Omnipaque 350 MG/ML 500 ML BTL-Imaging package IJ (10:54)
[2022-06-09] MEDS: Normal Saline - Diluent 50 ML VIAL IJ (10:55)
== END 2022-06-09 01:34 ==
LOC: DI 01:15
PROVIDERS: PCP Internal Medicine; Visit Provider Internal Medicine
DX: C61 Malignant neoplasm of prostate (principal); C79.51 Secondary malignant neoplasm of bone; J43.8 Other emphysema; N32.89 Other specified disorders of bladder
CPT/HCPCS: 74177; 78306; 80053; 71260

== ENCOUNTER 2022-06-14 02:27 | Outpatient (CLI) | payer MEDICARE, OTHER, SELFPAY ==
[2022-06-14 11:44] LABS: Abs Immature Grans 0.02 10^3/uL (0.0-0.06); Absolute Basophil Count 0.02 10^3/uL (0.0-0.2); Absolute Eosinophil Count 0.08 10^3/uL (0.0-0.7); Absolute Monocyte Count 0.75 10^3/uL (0.1-0.8); Absolute Neutrophil Count 3.94 10^3/uL (1.2-6.7); Basophils % 0.3; Eosinophils % 1.2; HGB 11.9 g/dL (13.5-17.5); Immature Grans % 0.3; MCH 30.4 pg (27.0-33.0); MCHC 33.1 % (32.0-36.0); MCV 92 fL (80-95); MPV 8.4 fL (8.0-11.0); Monocytes % 11.7; Neutrophils % 61.5; Platelet Count 247 10^3/uL (130-400); RBC 3.92 10^6/uL (4.36-5.78); RDW 12.4 % (11.8-14.1); RDW-SD 41.4 fL; WBC 6.41 10^3/uL (4.4-10.8)
[2022-06-14 12:36] LABS: ALT 19 U/L (16-63); AST 16 U/L (15-37); Albumin 3.7 g/dL (3.4-5.0); Alkaline Phosphatase 84 U/L (46-116); Anion Gap 7.6 mmol/L (3-11); BUN 17 mg/dL (7-18); CO2 30.4 mmol/L (21.0-32.0); Calcium 9.6 mg/dL (8.5-10.1); Chloride 107 mmol/L (98-107); Estimated GFR 72.84 (mL/min/1.73m2); Glucose 115 mg/dL (74-106); Potassium 3.5 mmol/L (3.5-5.1); Sodium 145 mmol/L (136-145); Total Protein 6.8 g/dL (6.4-8.2)
[2022-06-16 16:51] LABS: PSA, Ultrasensitive 0.14 ng/mL (<= 7.2)
[2022-06-19 04:23] LABS: Testosterone, Total <7.0 ng/dL (240-950)
== END 2022-06-14 02:28 | disposition home or self-care (01) ==
LOC: LBO 02:27
PROVIDERS: PCP Internal Medicine; Visit Provider Internal Medicine
DX: C61 Malignant neoplasm of prostate (principal); C79.51 Secondary malignant neoplasm of bone
CPT/HCPCS: 36415; 80053; 84153; 84403; 85025

== ENCOUNTER 2022-06-24 13:14 | Outpatient (CLI) | payer MEDICARE, OTHER, SELFPAY ==
--- NOTE | 2022-06-24 | DI.US_ITS ---
Exam(s) US LOWER EXTREMITY VENOUS RT EXAM: US LOWER EXTREMITY VENOUS RT CLINICAL HISTORY: RTLEG PAIN, SWELLING, M79.661 TECHNIQUE: Grayscale, color, and doppler imaging of the deep venous system of the right lower extrem ity was performed. COMPARISON: US US CAROTID from 05/01/2020 FINDINGS: There is no evidence of intraluminal thrombus and there is normal compression and augmentation demons trated within the common femoral vein, femoral vein, and popliteal vein. In the ipsilateral calf the interrogated veins also exhibit normal compression/ augmentation properti es. The ipsilateral saphenofemoral junction is patent. IMPRESSION: 1. No evidence of DVT in the right lower extremity. DATA REPOSITORY:
== END 2022-06-24 13:34 ==
LOC: DI 13:15
PROVIDERS: PCP Internal Medicine; Visit Provider Internal Medicine
DX: M79.661 Pain in right lower leg (principal); R22.41 Localized swelling, mass and lump, right lower limb
CPT/HCPCS: 93971

== ENCOUNTER 2022-08-30 10:22 | Outpatient (REF) | payer MEDICARE, OTHER, SELFPAY ==
[2022-08-30 16:06] LABS: Anion Gap 4.8 mmol/L (3-11); BUN 25 mg/dL (7-18); CO2 31.2 mmol/L (21.0-32.0); CREATININE 1.1 mg/dL (0.70-1.30); Calcium 9.3 mg/dL (8.5-10.1); Chloride 105 mmol/L (98-107); Estimated GFR 64.97 (mL/min/1.73m2); Glucose 116 mg/dL (74-106); Potassium 4.4 mmol/L (3.5-5.1); Sodium 141 mmol/L (136-145)
== END 2022-08-30 10:23 | disposition home or self-care (01) ==
LOC: NCHCN 10:22
PROVIDERS: PCP Internal Medicine; Visit Provider Internal Medicine
DX: I10 Essential (primary) hypertension (principal); C61 Malignant neoplasm of prostate
CPT/HCPCS: 80048

== ENCOUNTER 2022-09-28 14:18 | Outpatient (CLI) | payer MEDICARE, OTHER, SELFPAY ==
[2022-09-28 14:30] LABS: Abs Immature Grans 0.02 10^3/uL (0.0-0.06); Absolute Basophil Count 0.02 10^3/uL (0.0-0.2); Absolute Eosinophil Count 0.07 10^3/uL (0.0-0.7); Absolute Lymphocyte Count 1.29 10^3/uL (1.2-3.4); Absolute Monocyte Count 0.61 10^3/uL (0.1-0.8); Absolute Neutrophil Count 3.81 10^3/uL (1.2-6.7); Basophils % 0.3; Eosinophils % 1.2; HCT 41.4 % (40.0-50.0); HGB 13.6 g/dL (13.5-17.5); Immature Grans % 0.3; Lymphocytes % 22.2; MCH 30.8 pg (27.0-33.0); MCHC 32.9 % (32.0-36.0); MCV 94 fL (80-95); Monocytes % 10.5; Neutrophils % 65.5; Platelet Count 246 10^3/uL (130-400); RBC 4.42 10^6/uL (4.36-5.78); RDW 12.3 % (11.8-14.1); RDW-SD 42.7 fL; WBC 5.82 10^3/uL (4.4-10.8)
[2022-09-28 14:56] LABS: ALT 15 U/L (16-63); AST 20 U/L (15-37); Albumin 3.7 g/dL (3.4-5.0); Alkaline Phosphatase 86 U/L (46-116); Anion Gap 7.8 mmol/L (3-11); BUN 26 mg/dL (7-18); CO2 30.2 mmol/L (21.0-32.0); CREATININE 1.2 mg/dL (0.70-1.30); Calcium 9.1 mg/dL (8.5-10.1); Chloride 106 mmol/L (98-107); Estimated GFR 58.53 (mL/min/1.73m2); Glucose 133 mg/dL (74-106); Potassium 4.2 mmol/L (3.5-5.1); Sodium 144 mmol/L (136-145); Total Protein 6.9 g/dL (6.4-8.2)
[2022-09-29 18:06] LABS: PSA, Ultrasensitive 0.22 ng/mL (<= 7.2)
[2022-10-02 05:06] LABS: Testosterone, Total <7.0 ng/dL (240-950)
== END 2022-09-28 14:19 | disposition home or self-care (01) ==
LOC: LBO 14:18
PROVIDERS: PCP Internal Medicine; Visit Provider Internal Medicine
DX: C61 Malignant neoplasm of prostate (principal); C79.51 Secondary malignant neoplasm of bone
CPT/HCPCS: 36415; 80053; 84153; 84403; 85025

== ENCOUNTER 2022-12-07 03:22 | Outpatient (CLI) | payer MEDICARE, OTHER, SELFPAY ==
[2022-12-07 09:45] LABS: Abs Immature Grans 0.02 10^3/uL (0.0-0.06); Absolute Basophil Count 0.02 10^3/uL (0.0-0.2); Absolute Lymphocyte Count 1.66 10^3/uL (1.2-3.4); Absolute Monocyte Count 0.61 10^3/uL (0.1-0.8); Absolute Neutrophil Count 3.69 10^3/uL (1.2-6.7); Basophils % 0.3; Eosinophils % 1.6; HCT 41.1 % (40.0-50.0); HGB 13.7 g/dL (13.5-17.5); Immature Grans % 0.3; Lymphocytes % 27.2; MCH 31.6 pg (27.0-33.0); MCHC 33.3 % (32.0-36.0); MCV 95 fL (80-95); MPV 8.1 fL (8.0-11.0); Neutrophils % 60.6; Platelet Count 253 10^3/uL (130-400); RBC 4.33 10^6/uL (4.36-5.78); RDW 11.9 % (11.8-14.1); RDW-SD 41.9 fL
[2022-12-07 10:09] LABS: ALT 14 U/L (16-63); AST 15 U/L (15-37); Albumin 3.5 g/dL (3.4-5.0); Alkaline Phosphatase 92 U/L (46-116); Anion Gap 6.8 mmol/L (3-11); BUN 28 mg/dL (7-18); Bilirubin, Total 0.9 mg/dL (0.2-1.0); CO2 30.2 mmol/L (21.0-32.0); CREATININE 1.1 mg/dL (0.70-1.30); Calcium 9.1 mg/dL (8.5-10.1); Chloride 104 mmol/L (98-107); Estimated GFR 64.97 (mL/min/1.73m2); Glucose 138 mg/dL (74-106); NT-proBNP 517 pg/mL (<300); Potassium 3.8 mmol/L (3.5-5.1); Sodium 141 mmol/L (136-145); Total Protein 6.9 g/dL (6.4-8.2)
[2022-12-08 18:14] LABS: PSA, Ultrasensitive 0.17 ng/mL (<= 7.2)
== END 2022-12-07 03:23 | disposition home or self-care (01) ==
LOC: LBO 03:23
PROVIDERS: PCP Internal Medicine; Visit Provider Internal Medicine
DX: C61 Malignant neoplasm of prostate (principal); C79.51 Secondary malignant neoplasm of bone; R06.09 Other forms of dyspnea; R60.9 Edema, unspecified
CPT/HCPCS: 36415; 80053; 84153; 84403; 83880; 85025

== ENCOUNTER 2022-12-17 16:22 | Emergency (ER) | payer MEDICARE, OTHER, SELFPAY ==
[2022-12-17 16:34] VITALS: BP 172/79; PULSE 84; RESP 18; TEMP 36.4; O2SAT 98
--- NOTE | 2022-12-17 18:15 | DI.RAD_ITS ---
Exam(s) XR HAND RT COMPLETE EXAM: XR HAND RT COMPLETE CLINICAL HISTORY: hand injury. TECHNIQUE: 2D digital imaging was performed. COMPARISON: No exams were available for comparison FINDINGS: 3 views No evidence of acute fracture nor dislocation. There are 2 adjacent tiny radiopaque densities in the soft tissues of distal thumb. No fracture of the adjacent distal phalanx. There are minimal if any significant degenerative changes, particularly given this patient's advanced age. Bone density is n ormal. No osseous lesions. IMPRESSION: No fractures. Two tiny radiopaque probable foreign bodies in the distal thumb soft tissues. DATA REPOSITORY: RADIATION DOSE DELIVERED:
[2022-12-17 19:31] VITALS: BP 166/81; PULSE 79; RESP 16; TEMP 36.5; O2SAT 97
--- NOTE | 2022-12-17 20:49 | ED.GENADUL_ITS ---
Discharge Plan Disposition Patient Disposition: Home Discharge Details Clinical Impression: Contusion of hand(s), Laceration of hand Primary Care Provider: Sky Aviles ED Provider: Xochitl Hawkins Home Meds and New Rx's Prescriptions: Continued abiraterone 250 mg tablet 1,000 mg PO DAILY amlodipine 5 mg tablet 5 mg PO DAILY Patient Comments: TAKE ONE TABLET BY MOUTH EVERY DAY atorvastatin 20 mg tablet 20 mg PO HS Patient Comments: TAKE ONE TABLET BY MOUTH EVERY NIGHT prednisone 5 mg tablet 5 mg PO DAILY Patient Comments: TAKE ONE TABLET BY MOUTH EVERY DAY calcium carbonate-vitamin D3 600 mg(1,500mg) -200 unit tablet 600 tab PO DAILY Patient Comments: pt states that he has a new rx and it is 1200 mg /day sulfamethoxazole 500 mg Tablet 500 mg PO DAILY Discharge Instructions Instructions: Laceration (ED), Contusion in Adults (ED) Additional Instructions: keep clean, dry, and covered refrain from bending do not submerge in water return wtih spreading redness, fever, worsening pain Referrals: Sky Aviles MD [Primary Care Provider] - Medical Decision Making 87-year-old male presenting with right hand injury, second third and fourth digits, 3 lacerations noted proximal to the second and third and fourth digits Neurovascularly intact, range of motion intact, tetanus reportedly up-to-date Patient alert, oriented, ambulatory, no acute distress, no additional visible evidence of trauma, X-ray per radiology interpretation and my review right hand does not show evidence of acute abnormality Wound cleansed with soap and water, Dermabond was applied to the second and fourth for digits, 1/2 inch lacerations Third digit with 1 inch laceration, Steri-Strips applied #5 Bulky dressing applied for supportive care, discussed suturing versus Steri- Strips and glue, patient prefers Steri-Strips and glue, he is aware that he because these are overlying a flexor surface they are at risk for opening unless he keeps it straight, he is recommended to apply bulky dressings every 3 days and monitor for signs of infection Medical Records Medical records reviewed: Yes I reviewed the patient's medical records. Lab Data Lab results reviewed: Yes I reviewed the patient's lab results. HPI General Date/Time Provider Initiated Documentation: 12/17/22 18:25 . HPI Narrative: This 87-year-old gentleman presents with injury to right second third and fourth digits, a window closed on his hand while removing an air conditioner. Tetanus up-to-date. Denies any strength or sensation change. States he is able to move his fingers. Event occurred just prior to arrival. Denies history of coagulopathy. Related Data Home Medications Medication Instructions Recorded Confirmed amlodipine 5 mg tablet 5 mg PO DAILY 02/26/20 10/04/22 atorvastatin 20 mg tablet 20 mg PO HS 02/06/21 10/04/22 calcium carbonate 600 mg-vitamin 600 tab PO DAILY 02/06/21 10/04/22 D3 5 mcg (200 unit) tablet prednisone 5 mg tablet 5 mg PO DAILY 02/06/21 10/04/22 sulfamethoxazole 500 mg tablet 500 mg PO DAILY 02/06/21 10/04/22 abiraterone 250 mg tablet 1,000 mg PO DAILY 02/10/21 10/04/22 Allergies Allergy/AdvReac Type Severity Reaction Status Date / Time lisinopril Allergy Severe Unverified 10/04/22 14:57 bee venom protein (honey bee) Allergy Unverified 10/04/22 14:57 General Stated Complaint: Laceration KALINA: 3 PFSH All Active Problems (Updated 12/17/22 @ 19:23 by TK Ventura) Discolored skin (Acute) Hypokalemia (Acute) Contusion of hand(s) (Acute) Laceration of hand (Acute) Prostate cancer (Chronic) Obstructive uropathy (Acute) Overflow incontinence of urine (Acute) Elevated PSA (Acute) Medical History Abdominal bloating Bilateral cataracts Heart murmur Pt. denies this Hx of adenomatous colonic polyps Hyperlipemia Hypertension Lichenoid drug reaction Seborrheic keratoses Urinary frequency Surgical History History of colonoscopy Social History Smoking/Tobacco Use Status: Former Tobacco Use Quit Date: 03/21/59 Smoking risk assessment performed?: Yes Alcohol Intake: current Alcohol Intake frequency: 0-2 drinks per day Alcohol type: beer Drug use: Never Substance use type: does not use Do you feel safe at home: Yes Do you feel safe in your relationship?: Yes Course Vital Signs Vital signs: Vital Signs Temperature 36.4 C L 12/17/22 16:34 Pulse 84 12/17/22 16:34 Respiratory Rate 18 12/17/22 16:34 Blood Pressure 172/79 H 12/17/22 16:34 Pulse Oximetry 98 12/17/22 16:34 Temperature 36.5 C 12/17/22 19:31 Temperature Source Temporal Artery Scan 12/17/22 19:31 Pulse 79 12/17/22 19:31 Respiratory Rate 16 12/17/22 19:31 Respiratory Effort Normal 12/17/22 16:36 Blood Pressure 166/81 H 12/17/22 19:31 Blood Pressure Position Sitting 12/17/22 16:34 Pulse Oximetry 97 12/17/22 19:31 Oxygen Delivery Method Room Air 12/17/22 19:31 Oxygen Flow Rate 0 12/17/22 19:31
== END 2022-12-17 19:29 | disposition home or self-care (01) ==
PROVIDERS: Emergency Provider Physician Assistant; PCP Internal Medicine
DX: S61.411A Laceration without foreign body of right hand, initial encounter (principal); S60.221A Contusion of right hand, initial encounter; X58.XXXA Exposure to other specified factors, initial encounter
CPT/HCPCS: 99283; 73130

== ENCOUNTER 2023-03-07 02:55 | Outpatient (CLI) | payer MEDICARE, OTHER, SELFPAY ==
[2023-03-07 10:40] LABS: Abs Immature Grans 0.03 10^3/uL (0.0-0.06); Absolute Basophil Count 0.03 10^3/uL (0.0-0.2); Absolute Lymphocyte Count 1.78 10^3/uL (1.2-3.4); Absolute Monocyte Count 0.76 10^3/uL (0.1-0.8); Absolute Neutrophil Count 3.76 10^3/uL (1.2-6.7); Basophils % 0.5; Eosinophils % 1.5; HCT 41.6 % (40.0-50.0); HGB 13.7 g/dL (13.5-17.5); Immature Grans % 0.5; Lymphocytes % 27.6; MCH 31.5 pg (27.0-33.0); MCHC 32.9 % (32.0-36.0); MCV 96 fL (80-95); MPV 8.2 fL (8.0-11.0); Monocytes % 11.8; Neutrophils % 58.1; Platelet Count 242 10^3/uL (130-400); RBC 4.35 10^6/uL (4.36-5.78); RDW 11.9 % (11.8-14.1); RDW-SD 41.8 fL; WBC 6.46 10^3/uL (4.4-10.8)
[2023-03-07 11:16] LABS: ALT 15 U/L (16-63); AST 15 U/L (15-37); Albumin 3.5 g/dL (3.4-5.0); Alkaline Phosphatase 82 U/L (46-116); Anion Gap 8.8 mmol/L (3-11); BUN 26 mg/dL (7-18); Bilirubin, Total 1.1 mg/dL (0.2-1.0); CO2 29.2 mmol/L (21.0-32.0); CREATININE 1.1 mg/dL (0.70-1.30); Calcium 8.9 mg/dL (8.5-10.1); Chloride 104 mmol/L (98-107); Estimated GFR 64.97 (mL/min/1.73m2); Glucose 117 mg/dL (74-106); Potassium 4.2 mmol/L (3.5-5.1); Sodium 142 mmol/L (136-145); Total Protein 6.9 g/dL (6.4-8.2)
[2023-03-08 17:46] LABS: PSA, Ultrasensitive 0.16 ng/mL (<= 7.2)
[2023-03-12 03:06] LABS: Testosterone, Total 13 ng/dL (240-950)
== END 2023-03-07 02:56 | disposition home or self-care (01) ==
LOC: LBO 02:55
PROVIDERS: PCP Internal Medicine; Visit Provider Internal Medicine
DX: C61 Malignant neoplasm of prostate (principal); C79.51 Secondary malignant neoplasm of bone
CPT/HCPCS: 36415; 80053; 84153; 84403; 85025

== ENCOUNTER 2023-05-27 02:03 | Outpatient (CLI) | payer MEDICARE, OTHER, SELFPAY ==
[2023-05-27 11:39] LABS: Abs Immature Grans 0.03 10^3/uL (0.0-0.06); Absolute Basophil Count 0.01 10^3/uL (0.0-0.2); Absolute Eosinophil Count 0.16 10^3/uL (0.0-0.7); Absolute Lymphocyte Count 1.89 10^3/uL (1.2-3.4); Absolute Monocyte Count 0.63 10^3/uL (0.1-0.8); Absolute Neutrophil Count 3.71 10^3/uL (1.2-6.7); Basophils % 0.2; Eosinophils % 2.5; HCT 41.6 % (40.0-50.0); HGB 13.8 g/dL (13.5-17.5); Immature Grans % 0.5; Lymphocytes % 29.4; MCH 31.1 pg (27.0-33.0); MCHC 33.2 % (32.0-36.0); MCV 94 fL (80-95); MPV 8.3 fL (8.0-11.0); Monocytes % 9.8; Neutrophils % 57.6; Platelet Count 264 10^3/uL (130-400); RBC 4.44 10^6/uL (4.36-5.78); RDW 12.1 % (11.8-14.1); RDW-SD 41.5 fL; WBC 6.43 10^3/uL (4.4-10.8)
[2023-05-27 11:56] LABS: ALT 14 U/L (16-63); AST 14 U/L (15-37); Albumin 3.8 g/dL (3.4-5.0); Alkaline Phosphatase 102 U/L (46-116); Anion Gap 9.4 mmol/L (3-11); BUN 29 mg/dL (7-18); Bilirubin, Total 1.2 mg/dL (0.2-1.0); CO2 29.6 mmol/L (21.0-32.0); CREATININE 1.3 mg/dL (0.70-1.30); Calcium 9.7 mg/dL (8.5-10.1); Chloride 103 mmol/L (98-107); Estimated GFR 53.17 (mL/min/1.73m2); Glucose 100 mg/dL (74-106); Potassium 4.2 mmol/L (3.5-5.1); Sodium 142 mmol/L (136-145); Total Protein 7.5 g/dL (6.4-8.2)
[2023-05-30 13:47] LABS: PSA, Ultrasensitive 0.18 ng/mL (<= 7.2)
[2023-05-31 16:34] LABS: Testosterone, Total 9.9 ng/dL (240-950)
== END 2023-05-27 02:04 | disposition home or self-care (01) ==
PROVIDERS: PCP Internal Medicine; Visit Provider Internal Medicine
DX: C61 Malignant neoplasm of prostate (principal)
CPT/HCPCS: 36415; 80053; 84153; 84403; 85025

== ENCOUNTER 2023-08-19 01:06 | Outpatient (CLI) | payer MEDICARE, OTHER, SELFPAY ==
[2023-08-19 12:58] LABS: Abs Immature Grans 0.03 10^3/uL (0.0-0.06); Absolute Basophil Count 0.01 10^3/uL (0.0-0.2); Absolute Eosinophil Count 0.08 10^3/uL (0.0-0.7); Absolute Lymphocyte Count 1.46 10^3/uL (1.2-3.4); Absolute Monocyte Count 0.54 10^3/uL (0.1-0.8); Absolute Neutrophil Count 3.43 10^3/uL (1.2-6.7); Basophils % 0.2 %; Eosinophils % 1.4 %; HCT 41.5 % (40.0-50.0); HGB 13.6 g/dL (13.5-17.5); Immature Grans % 0.5 %; Lymphocytes % 26.3 %; MCH 31.7 pg (27.0-33.0); MCHC 32.8 % (32.0-36.0); MCV 97 fL (80-95); MPV 8.5 fL (8.0-11.0); Monocytes % 9.7 %; Neutrophils % 61.9 %; Platelet Count 250 10^3/uL (130-400); RBC 4.29 10^6/uL (4.36-5.78); RDW 12.1 % (11.8-14.1); RDW-SD 43.5 fL; WBC 5.55 10^3/uL (4.4-10.8)
[2023-08-19 13:30] LABS: ALT 14 U/L (16-63); AST 13 U/L (15-37); Albumin 3.6 g/dL (3.4-5.0); Alkaline Phosphatase 89 U/L (46-116); BUN 19 mg/dL (7-18); CREATININE 1.1 mg/dL (0.70-1.30); Calcium 8.9 mg/dL (8.5-10.1); Chloride 106 mmol/L (98-107); Estimated GFR 64.57 (mL/min/1.73m2); Glucose 106 mg/dL (74-106); Potassium 4.3 mmol/L (3.5-5.1); Sodium 144 mmol/L (136-145)
[2023-08-25 14:51] LABS: Testosterone, Total 11 ng/dL (240-950)
== END 2023-08-19 01:07 | disposition home or self-care (01) ==
LOC: LBO 01:07
PROVIDERS: PCP Internal Medicine; Visit Provider Internal Medicine
DX: C61 Malignant neoplasm of prostate (principal)
CPT/HCPCS: 36415; 80053; 84403; 85025

== ENCOUNTER 2023-11-22 04:58 | Outpatient (CLI) | payer MEDICARE, OTHER, SELFPAY ==
[2023-11-22 14:53] LABS: Abs Immature Grans 0.02 10^3/uL (0.0-0.06); Absolute Basophil Count 0.01 10^3/uL (0.0-0.2); Absolute Eosinophil Count 0.06 10^3/uL (0.0-0.7); Absolute Lymphocyte Count 1.74 10^3/uL (1.2-3.4); Absolute Monocyte Count 0.59 10^3/uL (0.1-0.8); Absolute Neutrophil Count 3.52 10^3/uL (1.2-6.7); Basophils % 0.2 %; HCT 40.9 % (40.0-50.0); HGB 13.3 g/dL (13.5-17.5); Immature Grans % 0.3 %; Lymphocytes % 29.3 %; MCH 31.5 pg (27.0-33.0); MCHC 32.5 % (32.0-36.0); MCV 97 fL (80-95); MPV 8.2 fL (8.0-11.0); Monocytes % 9.9 %; Neutrophils % 59.3 %; Platelet Count 227 10^3/uL (130-400); RBC 4.22 10^6/uL (4.36-5.78); RDW 11.9 % (11.8-14.1); RDW-SD 42.7 fL; WBC 5.94 10^3/uL (4.4-10.8)
[2023-11-22 15:48] LABS: ALT 18 U/L (16-63); AST 22 U/L (15-37); Albumin 3.6 g/dL (3.4-5.0); Alkaline Phosphatase 81 U/L (46-116); Anion Gap 8.6 mmol/L (3-11); BUN 27 mg/dL (7-18); CO2 28.4 mmol/L (21.0-32.0); CREATININE 1.2 mg/dL (0.70-1.30); Calcium 8.7 mg/dL (8.5-10.1); Chloride 106 mmol/L (98-107); Estimated GFR 58.17 (mL/min/1.73m2); Glucose 108 mg/dL (74-106); Potassium 4.2 mmol/L (3.5-5.1); Sodium 143 mmol/L (136-145)
[2023-11-25 11:41] LABS: PSA, Ultrasensitive 0.27 ng/mL (<= 7.2)
[2023-11-30 02:37] LABS: Testosterone, Total 15 ng/dL (240-950)
== END 2023-11-22 04:59 | disposition home or self-care (01) ==
PROVIDERS: PCP Internal Medicine; Visit Provider Internal Medicine
DX: C61 Malignant neoplasm of prostate (principal)
CPT/HCPCS: 36415; 80053; 84153; 84403; 85025

== ENCOUNTER 2024-02-14 02:40 | Outpatient (CLI) | payer MEDICARE, OTHER, SELFPAY ==
[2024-02-14 10:47] LABS: Abs Immature Grans 0.02 10^3/uL (0.0-0.06); Absolute Basophil Count 0.02 10^3/uL (0.0-0.2); Absolute Eosinophil Count 0.06 10^3/uL (0.0-0.7); Absolute Lymphocyte Count 1.38 10^3/uL (1.2-3.4); Absolute Monocyte Count 0.54 10^3/uL (0.1-0.8); Absolute Neutrophil Count 3.39 10^3/uL (1.2-6.7); Basophils % 0.4 %; Eosinophils % 1.1 %; HGB 13.7 g/dL (13.5-17.5); Immature Grans % 0.4 %; Lymphocytes % 25.5 %; MCH 32.2 pg (27.0-33.0); MCHC 33.4 % (32.0-36.0); MCV 97 fL (80-95); MPV 8.3 fL (8.0-11.0); Neutrophils % 62.6 %; Platelet Count 247 10^3/uL (130-400); RBC 4.25 10^6/uL (4.36-5.78); RDW 12.2 % (11.8-14.1); RDW-SD 42.8 fL; WBC 5.41 10^3/uL (4.4-10.8)
[2024-02-14 11:08] LABS: ALT 15 U/L (16-63); AST 15 U/L (15-37); Albumin 3.8 g/dL (3.4-5.0); Alkaline Phosphatase 86 U/L (46-116); Anion Gap 9.9 mmol/L (3-11); BUN 29 mg/dL (7-18); Bilirubin, Total 1.17 mg/dL (0.2-1.0); CO2 29.1 mmol/L (21.0-32.0); CREATININE 1.2 mg/dL (0.70-1.30); Chloride 106 mmol/L (98-107); Estimated GFR 58.17 (mL/min/1.73m2); Glucose 110 mg/dL (74-106); Potassium 4.1 mmol/L (3.5-5.1); Sodium 145 mmol/L (136-145); Total Protein 7.5 g/dL (6.4-8.2)
[2024-02-17 11:03] LABS: PSA, Ultrasensitive 0.22 ng/mL (<= 7.2)
[2024-02-18 10:16] LABS: Testosterone, Total 14 ng/dL (240-950)
== END 2024-02-14 02:41 | disposition home or self-care (01) ==
LOC: LBO 02:40
PROVIDERS: PCP Internal Medicine; Visit Provider Internal Medicine
DX: C61 Malignant neoplasm of prostate (principal); C79.51 Secondary malignant neoplasm of bone
CPT/HCPCS: 36415; 80053; 84153; 84403; 85025

== ENCOUNTER 2024-05-18 00:59 | Outpatient (CLI) | payer MEDICARE, OTHER, SELFPAY ==
[2024-05-18 12:30] LABS: Abs Immature Grans 0.03 10^3/uL (0.0-0.06); Absolute Basophil Count 0.02 10^3/uL (0.0-0.2); Absolute Eosinophil Count 0.04 10^3/uL (0.0-0.7); Absolute Lymphocyte Count 1.34 10^3/uL (1.2-3.4); Absolute Monocyte Count 0.54 10^3/uL (0.1-0.8); Absolute Neutrophil Count 3.96 10^3/uL (1.2-6.7); Basophils % 0.3 %; Eosinophils % 0.7 %; HCT 41.3 % (40.0-50.0); HGB 13.6 g/dL (13.5-17.5); Immature Grans % 0.5 %; Lymphocytes % 22.6 %; MCH 31.9 pg (27.0-33.0); MCHC 32.9 % (32.0-36.0); MCV 97 fL (80-95); MPV 8.4 fL (8.0-11.0); Monocytes % 9.1 %; Neutrophils % 66.8 %; Platelet Count 215 10^3/uL (130-400); RBC 4.26 10^6/uL (4.36-5.78); RDW 11.9 % (11.8-14.1); RDW-SD 42.7 fL; WBC 5.93 10^3/uL (4.4-10.8)
[2024-05-18 13:41] LABS: ALT 18 U/L (16-63); AST 17 U/L (15-37); Albumin 3.8 g/dL (3.4-5.0); Alkaline Phosphatase 91 U/L (46-116); Anion Gap 9.1 mmol/L (3-11); BUN 27 mg/dL (7-18); Bilirubin, Total 1.56 mg/dL (0.2-1.0); CO2 30.9 mmol/L (21.0-32.0); CREATININE 1.3 mg/dL (0.70-1.30); Calcium 9.6 mg/dL (8.5-10.1); Chloride 103 mmol/L (98-107); Estimated GFR 52.84 (mL/min/1.73m2); Glucose 112 mg/dL (74-106); Potassium 4.3 mmol/L (3.5-5.1); Sodium 143 mmol/L (136-145); Total Protein 7.6 g/dL (6.4-8.2)
[2024-05-21 20:37] LABS: PSA, Ultrasensitive 0.33 ng/mL (<= 7.2)
[2024-05-23 15:39] LABS: Testosterone, Total 17 ng/dL (240-950)
== END 2024-05-18 01:00 | disposition home or self-care (01) ==
PROVIDERS: PCP Internal Medicine; Visit Provider Internal Medicine
DX: C61 Malignant neoplasm of prostate (principal); C79.51 Secondary malignant neoplasm of bone
CPT/HCPCS: 36415; 80053; 84153; 84403; 85025

== ENCOUNTER 2024-08-16 03:12 | Outpatient (CLI) | payer MEDICARE, OTHER, SELFPAY ==
[2024-08-16 13:20] LABS: Abs Immature Grans 0.01 10^3/uL (0.0-0.06); Absolute Basophil Count 0.01 10^3/uL (0.0-0.2); Absolute Eosinophil Count 0.04 10^3/uL (0.0-0.7); Absolute Lymphocyte Count 1.15 10^3/uL (1.2-3.4); Absolute Monocyte Count 0.42 10^3/uL (0.1-0.8); Basophils % 0.2 %; Eosinophils % 0.9 %; HCT 38.3 % (40.0-50.0); HGB 12.4 g/dL (13.5-17.5); Immature Grans % 0.2 %; Lymphocytes % 26.6 %; MCH 31.3 pg (27.0-33.0); MCHC 32.4 % (32.0-36.0); MCV 97 fL (80-95); MPV 8.3 fL (8.0-11.0); Monocytes % 9.7 %; Neutrophils % 62.4 %; Platelet Count 170 10^3/uL (130-400); RBC 3.96 10^6/uL (4.36-5.78); RDW 11.9 % (11.8-14.1); RDW-SD 42.4 fL; WBC 4.33 10^3/uL (4.4-10.8)
[2024-08-16 13:49] LABS: ALT 14 U/L (16-63); AST 16 U/L (15-37); Albumin 3.5 g/dL (3.4-5.0); Alkaline Phosphatase 86 U/L (46-116); BUN 28 mg/dL (7-18); Bilirubin, Total 1.1 mg/dL (0.2-1.0); CREATININE 1.4 mg/dL (0.70-1.30); Calcium 9.3 mg/dL (8.5-10.1); Chloride 105 mmol/L (98-107); Estimated GFR 48.04 (mL/min/1.73m2); Glucose 140 mg/dL (74-106); Potassium 3.8 mmol/L (3.5-5.1); Sodium 142 mmol/L (136-145); Total Protein 7.2 g/dL (6.4-8.2)
[2024-08-20 16:08] LABS: PSA, Ultrasensitive 0.44 ng/mL (<= 7.2)
[2024-08-21 16:48] LABS: Testosterone, Total 9.7 ng/dL (240-950)
== END 2024-08-16 03:13 | disposition home or self-care (01) ==
LOC: LBO 03:12
PROVIDERS: PCP Internal Medicine; Visit Provider Internal Medicine
DX: C61 Malignant neoplasm of prostate (principal); C79.51 Secondary malignant neoplasm of bone
CPT/HCPCS: 36415; 80053; 84153; 84403; 85025

== ENCOUNTER 2024-11-13 03:13 | Outpatient (CLI) | payer MEDICARE, OTHER, SELFPAY ==
[2024-11-13 13:36] LABS: Abs Immature Grans 0.01 10^3/uL (0.0-0.06); HCT 38.5 % (40.0-50.0); HGB 12.4 g/dL (13.5-17.5); Immature Grans % 0.2 %; MCH 30.9 pg (27.0-33.0); MCHC 32.2 % (32.0-36.0); MCV 96 fL (80-95); MPV 8.1 fL (8.0-11.0); Platelet Count 142 10^3/uL (130-400); RBC 4.01 10^6/uL (4.36-5.78); RDW 12.2 % (11.8-14.1); RDW-SD 43.1 fL; WBC 4.41 10^3/uL (4.4-10.8)
[2024-11-13 13:53] LABS: ALT 15 U/L (16-63); AST 17 U/L (15-37); Albumin 3.4 g/dL (3.4-5.0); Alkaline Phosphatase 90 U/L (46-116); Anion Gap 4.0 mmol/L (3-11); BUN 20 mg/dL (7-18); Bilirubin, Total 0.9 mg/dL (0.2-1.0); CO2 33.0 mmol/L (21.0-32.0); Calcium 8.8 mg/dL (8.5-10.1); Chloride 106 mmol/L (98-107); Estimated GFR 52.51 (mL/min/1.73m2); Glucose 166 mg/dL (74-106); Potassium 3.8 mmol/L (3.5-5.1); Sodium 143 mmol/L (136-145); Total Protein 7.0 g/dL (6.4-8.2)
== END 2024-11-13 03:14 | disposition home or self-care (01) ==
LOC: LBO 03:13
PROVIDERS: PCP Internal Medicine; Visit Provider Internal Medicine
DX: C61 Malignant neoplasm of prostate (principal); C79.51 Secondary malignant neoplasm of bone
CPT/HCPCS: 36415; 80053; 84153; 84403; 85025

== ENCOUNTER 2025-02-11 10:13 | Outpatient (CLI) | payer MEDICARE, OTHER, SELFPAY ==
[2025-02-11 09:29] LABS: Abs Immature Grans 0.02 10^3/uL (0.0-0.06); HCT 38.4 % (40.0-50.0); HGB 12.7 g/dL (13.5-17.5); Immature Grans % 0.4 %; MCH 31.8 pg (27.0-33.0); MCHC 33.1 % (32.0-36.0); MCV 96 fL (80-95); MPV 8.3 fL (8.0-11.0); Platelet Count 138 10^3/uL (130-400); RBC 3.99 10^6/uL (4.36-5.78); RDW 12.3 % (11.8-14.1); RDW-SD 43.2 fL; WBC 5.23 10^3/uL (4.4-10.8)
[2025-02-11 10:52] LABS: ALT 10 U/L (10-49); AST 16 U/L (<34); Albumin 3.8 g/dL (3.4-5.0); Alkaline Phosphatase 82 U/L (46-116); Anion Gap 4.4 mmol/L (3-11); BUN 30 mg/dL (9-23); Bilirubin, Total 1.00 mg/dL (0.2-1.2); CO2 30.6 mmol/L (20.0-31.0); Calcium 9.1 mg/dL (8.3-10.6); Chloride 105 mmol/L (98-107); Glucose 103 mg/dL (74-106); Potassium 3.9 mmol/L (3.5-5.1); Sodium 140 mmol/L (136-145); Total Protein 7.1 g/dL (5.7-8.2)
== END 2025-02-11 10:14 | disposition home or self-care (01) ==
PROVIDERS: PCP Internal Medicine; Visit Provider Internal Medicine
DX: C61 Malignant neoplasm of prostate (principal); C79.51 Secondary malignant neoplasm of bone
CPT/HCPCS: 36415; 80053; 84153; 84403; 85025

== ENCOUNTER → 2025-03-08 00:07 | Outpatient (CLI) | payer MEDICARE, OTHER, SELFPAY ==
--- NOTE | 2025-03-08 14:18 | DI.US_ITS ---
APPROVED REPORT EXAM: Comprehensive 2D, Doppler, and color-flow Echocardiogram Patient Location: Out-Patient [facility] Work[employer] Leader: Neelam Alejo RDCS (AE) Indications: Systolic cardiac murmur Other Information Study Quality: Adequate Conclusion Normal left ventricular wall thickness and chamber size. Ejection fraction is 55 to 60%. Wall motion is normal Normal right ventricular size and function Both atria are normal in size Aortic valve is calcified. There is mild to moderate aortic stenosis. Calculated aortic valve area 0.9 cm??. Highest mean gradient is 23 mmHg. Trace aortic regurgitation Mitral annular calcification Estimated right ventricular systolic pressure is 33 mmHg Wall motion Left Ventricle The left ventricle is normal size. The left ventricular systolic function is normal. The left ventricular ejection fraction is within the normal range. There is normal left ventricular wall thickness. There is normal LV segmental wall motion. There is no ventricular septal defect visualized. LVEF is 55-60%. Right Ventricle The right ventricle is normal size. The right ventricular systolic function is normal. Atria The left atrium size is normal. The right atrium size is normal. The interatrial septum is intact with no evidence for an atrial septal defect. Aortic Valve Aortic valve is calcified. Number of aortic valve leaflets could not be assessed. Mild to moderate aortic stenosis. Highest mean aortic valve gradient is 22.85mmHg. Peak aortic valve gradient is 30.47mmHg. Calculated LOC by the continuity equation is .9_cm2. Trace aortic regurgitation. Mitral Valve Mild mitral annular calcification. No evidence of mitral valve stenosis. Trace mitral regurgitation. Tricuspid Valve The tricuspid valve is normal in structure. There is no tricuspid valve stenosis. Trace tricuspid regurgitation. The RVSP is 33.2mmHg. Pulmonic Valve The pulmonary valve is normal in structure. There is no pulmonic valvular stenosis. Trace pulmonic regurgitation. Great Vessels The aortic root is normal in size. The ascending aorta is normal in size. Aortic arch is normal in caliber. IVC is normal in size and collapses >50% with inspiration. Pericardium There is no pericardial effusion. 2D Dimensions IVSD d PLAX 1.00 cm M: 0.6-1.2 Ao Root d 2.91 cm M: 3.1 - 3.7 LVPW d PLAX 1.00 cm M: 0.6 - 1.2 Ao Asc Diam d 3.40 cm M: 2.6 - 3.4 LVID d PLAX 4.30 cm M: 4.2 - 5.8 LVDs 2.93 cm M: 2.5 - 4.0 LV EF Teichholz 60.2 % FS 31.86 % LV EDV (Teich) 83.2 mL LV ESV (Teich) 33.1 mL M-Mode TAPSE 2.49 cm (M/F) >1.7 Auto EF LV EDV A4C 88.8 mL LV EDV A2C 93.8 mL LV EDV BP 93.7 mL LV ESV A4C 40.0 mL LV ESV A2C 41.9 mL LV ESV BP 40.1 mL LVEF(%) A4C 54.9 % LVEF(%) A2C 55.4 % LVEF(%) BP 57.1 % LV SV A4C 48.8 ml LV SV A2C 51.9 ml LV SV BP 53.5 ml LV CO A4C 3.3 L/min LV CO A2C 2.9 L/min LV CO BP 3.1 L/min HR A4C 66.67 BPM HR A2C 56.16 BPM LV EDV Index (BP) LA Volume LA Length A4C 5.1 cm LA Length A2C 4.8 cm LA Area A4C s 15.81 cm2 LA Area A2C s 16.42 cm2 LA Vol A4C A-L 41.39 mL LA Vol A2C A-L 47.50 mL LA Vol Biplane A-L 45.8 mL LA Vol/BSA A4C A-L LA Vol/BSA A2C A-L LA Vol/BSA BP A-L 25.3 mL/m2 LA Vol A4C MOD 40.8 mL LA Vol A2C MOD 43.6 mL LA Vol BP MOD 43.1 mL RA Volume RA Area A4C 16.6 cm2 RA ESV A4C (A-L) 45.8mL RA Vol/BSA A4C A-L RA Length A4C 5.1 cm RA ESV A4C (MOD) 42.2mL LV Diastology MV E' medial 0.062 (>0.07 m/s) MV E Vmax 0.81 (0.4-1.3 m/s) MV E/E' MED 13.09 (<14) MV A Vmax 0.85 (0.4-1.3 m/s) MV E' lateral 0.092 (>0.1 m/s) E/A Ratio 1.0 MV E/E' LAT 8.77 (<14) MV E' Average 0.077 m/s MV E/E'(average) 10.50 Aortic Valve AoV Vmax 2.76 m/s LVOT Vmax 0.87 m/s AoV Peak Grad 30.5 mmHg LVOT Peak Grad 3.0 mmHg AoV Area (Vmax) 0.92 cm2 LVOT VTI 0.199 m AoV VTI 0.653 m LVOT Mean Grad 2.0 mmHg AoV Mean Josh. 2.32 m/s LVOT SV 58.05 mL AoV Mean Grad 22.8 mmHg LVOT Diam s 1.90 cm AoV Area (VTI) 0.89 cm2 AV Regurg Peak Gr. 30.47 mmHg Velocity Ratio 0.32 Mitral Valve MV DT 229 (160-240 msec) MV Vmax TIPS 0.80 m/s MV Mean Grad 1.0 (<2mmHg) MV VTI 0.275 m Pulmonary Valve PV Vmax 0.94 (0.5-1.5 m/s) RVOT Vmax 0.95 m/s PV Peak Grad 3.5 mmHg RVOT Peak Gr. 3.6 mmHg PV Mean Josh 0.60 m/s RVOT VTI 0.201 m PV Mean Grad 1.7 mmHg RVOT Mean Gr. 1.9 mmHg Tricuspid Valve RA Pressure 3.00 mmHg TR Vmax 2.75 m/s TV S' 0.14 m/s TR Peak Grad 30.1 mmHg RVSP (TR) 33.2 mmHg
== END ==
LOC: DI 00:07
PROVIDERS: PCP Family Medicine; Visit Provider Family Medicine
DX: R01.1 Cardiac murmur, unspecified (principal)
CPT/HCPCS: 93306